=== PATIENT | male | born 1935 | race Caucasian/White ===

== ENCOUNTER 2017-04-30 22:13 | Inpatient (IN) | payer MEDICARE, OTHER, SELFPAY ==
[2017-04-30 22:16] VITALS: BP 116/74; PULSE 138; RESP 31; TEMP 37.9; O2SAT 90; BMI 32.4
--- NOTE | 2017-04-30 22:28 | NURSING ---
NO OLD EKG'S IN MUSE
[2017-04-30] MEDS: 0.9% Normal Saline 1,000 ML 999 ML IV (22:30)
--- NOTE | 2017-04-30 22:31 | RAD_ITS ---
STUDY: X-RAY CHEST REASON FOR EXAM: Male, 81 years old. Fever, vomiting TECHNIQUE: Single AP portable view of the chest. COMPARISON: None. FINDINGS: The lungs are under expanded. Bilateral small effusions right greater than left. Right lower lung opacity. There is no demonstrated pleural abnormality. There is mild cardiac enlargement. Normal mediastinum and jeimy. Normal visualized pulmonary arteries. Normal visualized aortic arch and descending thoracic aorta. Normal visualized thoracic spine. Normal visualized ribs, clavicles, and shoulders. There is no demonstrated abnormality of the visualized soft tissue structures of the upper abdomen. RAD/Chest 1 View (Portable) IMPRESSION: Bilateral small effusions right greater than left. Right lower lung infiltrate not excluded. Electronically Signed: Richmond Emmanuel DO at 23:39 EST , Service support ,
--- NOTE | 2017-04-30 22:31 | EKG12_ITS ---
Test Reason : WEAKNESS Blood Pressure : / mmHG Vent. Rate : 136 BPM Atrial Rate : 136 BPM P-R Int : 132 ms QRS Dur : 082 ms QT Int : 306 ms P-R-T Axes : 038 062 050 degrees QTc Int : 460 ms Sinus tachycardia Otherwise normal ECG Confirmed by CHANELLE VARGAS ([id number]), digital editor KIARA BARON ([id number] on 05/02/2017 11:37:36 AM Referred By: DAYNE Confirmed By:CHANELLE VARGAS
--- NOTE | 2017-04-30 22:35 | CT_ITS ---
STUDY: CT BRAIN WITHOUT CONTRAST REASON FOR EXAM: Male, 81 years old. Mental status change, fever, lethargy RADIATION DOSAGE (If Supplied By Facility): CTDIvol = ( 44.99 ) mGy, DLP = ( 812.98 ) mGycm TECHNIQUE: Transaxial CT imaging of the brain was performed without administration of intravenous contrast material. Sagittal and coronal images are reformatted. Individualized dose optimization techniques were used for this CT. COMPARISON: None. FINDINGS: Normal soft tissue structures. Normal calvarium. There is moderate cerebral atrophy with widening of the extra-axial spaces and ventricular dilatation. There are areas of decreased attenuation within the white matter tracts of the supratentorial brain, consistent with microvascular disease changes. Right and left frontal lobe areas of encephalomalacia Normal basal ganglia and thalami. Normal brainstem. Normal cerebellum. There is no intracranial hemorrhage. There are no findings of an acute ischemic infarction. Normal visualized paranasal sinuses. CT/Brain/Head without Contrast IMPRESSION: Chronic involutional changes of the brain. No acute intracranial process. Electronically Signed: Richmond Emmanuel DO at 23:58 EST , Service support ,
[2017-04-30 22:46] LABS: Bacteria 0 SEEN /hpf (None Seen); Mucous, Urine 0 SEEN /hpf (<or=2+); Squamous Epithelial Cells - UA 0 SEEN /hpf (0-5)
[2017-04-30 22:46] LABS: Absolute Lymphocyte Count 0.48 X10^3/ul (0.83-4.51); Absolute Neutrophil Count 15.7 X10^3/uL (2.0-7.7); Basophil# 0.04 X10^3/uL; Basophil% 0.2 % (0-1); Eosinophil# 0.14 X10^3/uL; Eosinophils% 0.8 % (0-5); Hematocrit 44.2 % (40-54); Hemoglobin 14.3 g/dl (13.0-16.5); International Normalized Ratio 1.1; Lymphocyte # 0.48 X10^3/ul (4.0); Lymphocyte % 2.8 % (19-41); Mean Corp Hgb Conc 32.4 g/gl (32-36); Mean Corpuscular Hgb 29.2 pg (27.0-32.0); Mean Corpuscular Volume 90.2 fL (80-94); Mean Platelet Vol. 9.9 fl (6.2-12.0); Monocyte# 0.86 X10^3/uL; Neutrophil # 15.66 X10^3/uL (2.7-7.7); Platelet Count 398 K/mm3 (150-450); Prothrombin Time (Protime)PT. 13.7 SECONDS (11.7-14.9); RBC Distribution Width CV 15.3 % (11.6-14.6); RBC Distribution Width SD 49.5 fl (35.1-43.9); White Blood Count 17.2 K/mm3 (4.4-11.0)
[2017-04-30 22:47] LABS: Differential Indicated SCAN CRITERIA MET; POSITIVE COUNT NO; POSITIVE DIFFERENTIAL YES; POSITIVE MORPHOLOGY NO; Partial Thromboplast Time 31.4 Seconds (24.1-36.2)
[2017-04-30 22:48] LABS: Color, Urine Yellow (Yellow); Glucose, Dipstick 50 mg/dl (Normal); Ketone-Dipstick Negative (Negative); Leukocyte Esterase-Dipstick Negative /ul (Negative); Nitrite-Dipstick Negative (Negative); Occult Blood-Urine 10 /ul (Negative); Protein-Dipstick Negative (Negative); Urine Bilirubin Dipstick Negative (Negative); Urine Clarity Clear (Clear); Urine Urobilinogen Normal (Normal)
[2017-04-30 22:49] VITALS: TEMP 38.9
[2017-04-30 22:50] VITALS: BP 128/73; PULSE 130; RESP 22; TEMP 39; O2SAT 96
[2017-04-30 22:55] LABS: Hyaline Cast 0-5 SEEN /lpf (0-5)
[2017-04-30 22:56] LABS: Red Blood Cells-Urine 0-5 SEEN /hpf (0-5); White Blood Cells 0-5 SEEN /hpf (0-5)
[2017-04-30 22:58] LABS: Transitional Epithelial - Ur 0-5 SEEN /hpf (0-5)
[2017-04-30 22:59] LABS: ALB/GLOB Ratio 0.6 RATIO (0.9-2.4); AST(SGOT) 14 U/L (15-37); Alanine Aminotransfer ALT/SGPT 13 U/L (12-78); Alkaline Phosphatase 132 U/L (45-117); Anion Gap 8 (5-15); BUN 26 mg/dL (7-18); BUN/Creat Ratio 11.9 RATIO (10-20); Calcium,Total 8.5 mg/dL (8.5-10.1); Chloride 103 mmol/L (98-107); Creatinine, Serum 2.18 mg/dL (0.70-1.30); EST Glomerular Filtration Rate 31 mL/min (>60); Est Glom Filt Rate - Afr Amer 38 mL/min (>60); Estimated Creatinine Clearance 27.91 ml/min; Globulin 4.7 g/dL (2.2-4.2); Glucose 96 mg/dL (70-110); Potassium 4.8 mmol/L (3.5-5.1); Protein, Total 7.7 g/dL (6.4-8.2); Sodium Level 139 mmol/L (136-145)
[2017-04-30 23:00] LABS: Lactic Acid 1.7 mmol/L (0.4-2.0)
[2017-04-30 23:11] LABS: Differential Comment SCANNED
--- NOTE | 2017-04-30 23:13 | ED.VISSUMM ---
- ER Visit Summary Date of Service: 04/30/17 Chief Complaint: Fever, vomiting, aspiration concern History of Present Illness: The patient is a 81 M sent from [place] for evaluation of fever, vomiting, aspiration concerns. Reported temp of 102 at 9 PM status post 1 g Tylenol. Reported emesis ?2 that appeared bloody per report. Reported aspiration concerns. Patient history of traumatic brain injury baseline to self per intermediate. They state he have lower extremity weakness. Records did not know any anticoagulation medications. Patient came the ED 90% on room air. Patient is a full code. Patient unable to give any additional information. Past medical history: Diabetes, hypercholesterolemia, TBI, depression Physical Examination: Vitals: Temp 102.2 orally, pulse 138, respirations 31, blood pressure 120/73 patient is a 50 units of insulin subcu General: Awake, follows some commands, on oxygen. No acute distress HEENT: Normocephalic, atraumatic. 2 mm, equal reactive. Dry mucosa membranes. She has Neck: supple, nontender. Cardiovascular: Regular tachycardic rate and rhythm, no murmurs Respiratory: Rhonchi was noted bilaterally, diminished breath sounds, no accessory muscle use, no retractions, rales normal conjunctiva Abdomen: Soft, nontender, nondistended Extremities: Nontender, 1+ symmetric lower extremity edema, pulses intact ?4 Neuro: Follows some commands, weakness lower extremities and left upper extremity Skin: No pallor is Test Results: EKG: Sinus tachycardia, rate of 36, no ST or T-wave changes. WBC 17, hemoglobin 14.3. Creatinine 2.18. Lactic acid 1.7. Troponin 0 0.03. UA normal. Influenza negative. Blood and urine cultures pending. Chest x-ray: Bilateral pleural effusion, right lower lobe opacity. CT head: No acute changes. Emergency Department Course and Treatment: Patient placed on oxygen. EKG was sinus tachycardia. IV fluids given. Sepsis labs were ordered. Concerns and reported aspiration, Unasyn was started. 1 g of Tylenol was given 2 hours ago. Reported vomiting with concerns of blood. Patient started on Protonix along with a drip. Blood pressure is stable. With rhonchi given DuoNeb treatments. I did speak with nurse taking care of the patient, reported called in the room by nursing tech for emesis ?2. States there was a little blood from the nostril that was bright red, second emesis was more dark in color. Shortly after noted the breathing issues in the temperature. Patient weight-bear pivot transfers for the past 6 months. Discussed with nursing, had outpatient labs with creatinine of 1.81 in July 2016. Patient does meet sepsis criteria. 3 L fluids, heart rate still tachycardic 120s-130s. Additional liter fluid was given. Stable nasal cannula. On reevaluation the room, patient more awake alert, more responsive. I discussed with hospitalist, Dr. Reed, who will admit to PCU for further management. Treatment Plan: [] Disposition: Admission Impression: 1. Sepsis 2. Aspiration pneumonia 3. Emesis 4. Chronic kidney disease This note was generated with [employer] dictation software. It may contain incorrect words, spelling, and punctuation that were not noted in review of the chart prior to signing ED Disposition - Plan for ED Patient: Disposition: Acute [facility] Chief Complaint: General Illness Diagnosis: Sepsis, Aspiration pneumonia, Emesis, Chronic kidney disease Referrals: NOT,DEFINED [Primary Care Provider] -
--- NOTE | 2017-04-30 23:19 | ED.DCSUM_ITS ---
- ER Visit Summary Date of Service: 04/30/17 Chief Complaint: Fever, vomiting, aspiration concern History of Present Illness: The patient is a 81 M sent from [place] for evaluation of fever, vomiting, aspiration concerns. Reported temp of 102 at 9 PM status post 1 g Tylenol. Reported emesis ?2 that appeared bloody per report. Reported aspiration concerns. Patient history of traumatic brain injury baseline to self per alf. They state he have lower extremity weakness. Records did not know any anticoagulation medications. Patient came the ED 90% on room air. Patient is a full code. Patient unable to give any additional information. Past medical history: Diabetes, hypercholesterolemia, TBI, depression Physical Examination: Vitals: Temp 102.2 orally, pulse 138, respirations 31, blood pressure 120/73 patient is a 50 units of insulin subcu General: Awake, follows some commands, on oxygen. No acute distress HEENT: Normocephalic, atraumatic. 2 mm, equal reactive. Dry mucosa membranes. She has Neck: supple, nontender. Cardiovascular: Regular tachycardic rate and rhythm, no murmurs Respiratory: Rhonchi was noted bilaterally, diminished breath sounds, no accessory muscle use, no retractions, rales normal conjunctiva Abdomen: Soft, nontender, nondistended Extremities: Nontender, 1+ symmetric lower extremity edema, pulses intact ?4 Neuro: Follows some commands, weakness lower extremities and left upper extremity Skin: No pallor is Test Results: EKG: Sinus tachycardia, rate of 36, no ST or T-wave changes. WBC 17, hemoglobin 14.3. Creatinine 2.18. Lactic acid 1.7. Troponin 0 0.03. UA normal. Influenza negative. Blood and urine cultures pending. Chest x-ray: Bilateral pleural effusion, right lower lobe opacity. CT head: No acute changes. Emergency Department Course and Treatment: Patient placed on oxygen. EKG was sinus tachycardia. IV fluids given. Sepsis labs were ordered. Concerns and reported aspiration, Unasyn was started. 1 g of Tylenol was given 2 hours ago. Reported vomiting with concerns of blood. Patient started on Protonix along with a drip. Blood pressure is stable. With rhonchi given DuoNeb treatments. I did speak with nurse taking care of the patient, reported called in the room by nursing unit manager for emesis ?2. States there was a little blood from the nostril that was bright red, second emesis was more dark in color. Shortly after noted the breathing issues in the temperature. Patient weight-bear pivot transfers for the past 6 months. Discussed with nursing, had outpatient labs with creatinine of 1.81 in July 2016. Patient does meet sepsis criteria. 3 L fluids, heart rate still tachycardic 120s-130s. Additional liter fluid was given. Stable nasal cannula. On reevaluation the room, patient more awake alert, more responsive. I discussed with hospitalist, Dr. Reed, who will admit to PCU for further management. Treatment Plan: [] Disposition: Admission Impression: 1. Sepsis 2. Aspiration pneumonia 3. Emesis 4. Chronic kidney disease This note was generated with [employer] dictation software. It may contain incorrect words, spelling, and punctuation that were not noted in review of the chart prior to signing ED Disposition - Plan for ED Patient: Disposition: Acute [facility] Chief Complaint: General Illness Diagnosis: Sepsis, Aspiration pneumonia, Emesis, Chronic kidney disease Referrals: NOT,DEFINED [Primary Care Provider] -
[2017-04-30 23:41] VITALS: BP 146/80; PULSE 126; RESP 27; O2SAT 94
[2017-04-30 23:45] VITALS: PULSE 128; RESP 26
[2017-04-30] MEDS: Ipratropium/Albuterol Sulfate 3 ML AMPUL.NEB INHALATION (23:47)
[2017-04-30] MEDS: 0.9% Normal Saline 1,000 ML 150 ML IV (23:56)
[2017-04-30 23:59] VITALS: BP 142/61; PULSE 128; RESP 32; TEMP 38.9; O2SAT 93
[2017-05-01] VITALS (16 sets, daily range): BP systolic 93–137; BP diastolic 46–72; PULSE 104–127; RESP 16–20; TEMP 36.8–37.8; O2SAT 88–95; BMI 33.8; BMI 33.9
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
[2017-05-01] MEDS: 0.9% Normal Saline 1,000 ML 999 ML IV (00:10)
--- NOTE | 2017-05-01 00:21 | HP.PCM_ITS ---
Problem List (1) History of traumatic brain injury Status: Chronic (2) Hyperlipidemia Status: Chronic Qualifiers: Hyperlipidemia type: unspecified Qualified Code(s): E78.5 - Hyperlipidemia , unspecified (3) Obesity (BMI 30.0-34.9) Status: Chronic (4) Anxiety and depression Status: Chronic (5) Diabetes mellitus, type II Status: Chronic Qualifiers: Diabetes mellitus complication status: with unspecified complications Diabetes mellitus alf insulin use: with termite helper use Qualified Code(s) : E11.8 - Type 2 diabetes mellitus with unspecified complications; Z79.4 - alf (current) use of insulin History of Present Illness Date of Admission: 05/01/17 Chief Complaint: Cough, Dyspnea, N/V, Fever The patient is a 81 y/o M w/ PMHx: Anxiety and Depression, Diabetes mellitus type II, Hx TBI ~ 1984 fell off a roof and hit his head (A+O to person only baseline per facility), Hyperlipidemia, Obesity, CKD suspected stage III (2016 Cr 1.8 per facility report) who presents to the [facility] on 05/01/17 from [facility] where he has been a patient since 2011, noted per facility to staff to be limited to standing and pivot for transfer only with history of onset episode of nausea and emesis with following later in the day onset fevers , dyspnea, increased respiratory rate as well as coughing. Facility staff also noted following severe retching the patient did have a small amount of blood tinged appearance to his sputum. In the ED work-up included T 102.2, HR 130, BP 128/73, RR 22-26, 96% on 2L NC, CBC w/ WBC 17.2, Hgb 14.3, Plts 398 with L shift , unremarkable coags, CMP w/ BUN/Cr 26/2.18, trop 0.03, UA unremarkable, EKG w/ sinus tachycardia, chest x-ray with bilateral small effusions right greater than left with the right lower lung possible infiltrate, CT head with no acute findings, chronic changes. In the emergency room patient administered 2 L normal saline, Unasyn, Protonix until clarification with facility as initial concern for possible GI bleed. Past Medical History Past Medical History (Chronic Problems): Chronic Problems History of traumatic brain injury (Chronic) Hyperlipidemia (Chronic) Obesity (BMI 30.0-34.9) (Chronic) Anxiety and depression (Chronic) Diabetes mellitus, type II (Chronic) Allergies No Known Allergies Allergy (Verified 04/30/17 22:25) Home Medications: Ambulatory Orders Medication Instructions Recorded Acetaminophen 500 mg PO BID 04/30/17 Atorvastatin Calcium 20 mg PO QHS 04/30/17 Furosemide 40 mg PO DAILY 04/30/17 Guaifenesin/Dextromethorphan 20 ml PO PRN PRN 04/30/17 [Robafen Dm Cgh-Chest Rizwan Liq] Ibuprofen 400 mg PO Q6H PRN PRN 04/30/17 Insulin Glargine,Hum.rec.anlog 40 units SQ DAILY 04/30/17 [Lantus] Insulin Lispro [Humalog] 18 unit SQ TIDCM 04/30/17 Loperamide [Imodium] 2 mg PO PRN PRN 04/30/17 Loratadine 10 mg PO DAILY 04/30/17 Menthol/Lanolin/Calamine/Znox 1 applic TOPICAL DAILY 04/30/17 [Calmoseptine Ointment] Mupirocin [Bactroban] 1 applic TOPICAL TID 04/30/17 Sertraline HCl [Zoloft] 100 mg PO DAILY 04/30/17 TraMADol [Ultram (G)] 50 mg PO PRN PRN 04/30/17 Surgical History: - - Appendectomy, Back Surgery. Psychiatric History: Anxiety, Depression Lives: Custodial Smoking Status: Former smoker Tobacco Use: Non-smoker Alcohol: None Drugs: None - *Family History Maternal History Items: No pertinent history Paternal History Items: Stroke - CVA in mid-60s. Review of Systems Constitutional: Reports: Chills, Malaise, Weakness. Denies: Fever, Weight Change HEENT: Denies: Head Aches, Sinus Congestion, Sinus Drainage Cardiovascular: Denies: Chest Pain, Palpitations Respiratory: Reports: Cough, Shortness of Breath, Shortness of breath at rest, Shortness of breath upon exertion, Sputum production Gastrointestinal: Reports: Nausea, Vomiting. Denies: Abdominal Pain Genitourinary: Denies: Dysuria Musculoskeletal: Denies: Joint Pain, Joint Tenderness Skin: Denies: Rash, Wounds Neurological: Denies: Numbness, Tingling, Focal weakness Psychiatric: Reports: Anxiety, Depression - ROS given per Facility staff, patient minimal orientation and interactiveness.. Denies: Homicidal Ideations, Suicidal Ideations Hematologic/ Lymphatic: Denies: Easy Bruising, Easy Bleeding VTE Information - Inpt Only VTE Present on Admission: No VTE Mechan Device Prophylaxis: SCD's VTE Pharm Prophylaxis ordered?: Yes Subjective: Seated upright in the ED bed, chills evident, increased RR, some accessory muscle usage. Objective: Physical Examination: General: awake, alert, oriented to self only, able to answer with nod to some questions, able to grasp fingers when requested, intermittently following requests, commands, seated upright in the ED bed, increased RR, some accessory muscle usage. Skin: normal color, turgor, no icterus, cyanosis. HEENT: AT/NC, EOMI, PERRLA, dry MM, no carotid bruits or JVD noted. Lungs: Diminished bases, mildly coarse BL bases, R>L, increased RR, some accessory muscle usage, no wheezing. Heart: Tachycardic with regular rhythm; no gallop, rub audible. Abdomen: soft, obese, NTTP, ND, normal BS, no HSM. Extremities: no cyanosis, clubbing, or edema. Neurological: awake, alert, oriented to self only, able to answer with nod to some questions, able to grasp fingers when requested, intermittently following requests, commands, cognitive function baseline poor, appears intact; pupils equally reactive to light and accomodation; cranial nerves II-XII grossly normal but difficult to assess, minimal movement LE, movement BL UE minimal also which is chronic per facility, near bedbound, severely debilitated, strength severely globally decreased. Psychiatric: affect appears flat, no acute evidence of depressive or anxiety feelings. - Physical Exam Vital Signs Temp Pulse Resp BP Pulse Ox 102.2 F H 128 H 26 H 146/80 H 94 04/30/17 22:50 04/30/17 23:45 04/30/17 23:45 04/30/17 23:41 04/30/17 23:41 Oxygen Flow Rate 2 Oxygen Delivery Method Nasal Cannula Weight: 226 lb 3.108 oz Body Mass Index (BMI) 32.4 Microbiology Past 72 Hours 04/30/17 22:55 Influenza Types A,B Direct FA (SUSAN) - Final Mucosa - Nose Laboratory Tests Past 24 Hrs 01/16/18 01/16/18 01/16/18 22:25 22:25 22:25 WBC 17.2 H RBC 4.90 Hgb 14.3 Hct 44.2 MCV 90.2 MCH 29.2 MCHC 32.4 RDW 15.3 H RDW Differential 49.5 H Plt Count 398 MPV 9.9 Immature Gran % (Auto) 0.200 Neut % (Auto) 91.0 H Lymph % (Auto) 2.8 L Sanborn % (Auto) 5.0 Eos % (Auto) 0.8 Baso % (Auto) 0.2 Absolute Neuts (auto) 15.7 H Absolute Lymphs (auto) 0.48 L Total Counted Not Reportable Differential Comment SCANNED PT 13.7 INR 1.1 APTT 31.4 Sodium 139 Potassium 4.8 Chloride 103 Carbon Dioxide 28.0 Anion Gap 8 BUN 26 H Creatinine 2.18 H Estim Creat Clear Calc 27.91 Est GFR (MDRD) Af Amer 38 L Est GFR (MDRD) Non-Af 31 L BUN/Creatinine Ratio 11.9 Glucose 96 Lactic Acid Calcium 8.5 Total Bilirubin 0.70 AST 14 L ALT 13 Alkaline Phosphatase 132 H Troponin I Total Protein 7.7 Albumin 3.0 L Globulin 4.7 H Albumin/Globulin Ratio 0.6 L Urine Color Urine Clarity Urine pH Ur Specific Waite Urine Protein Urine Glucose (UA) Urine Ketones Urine Occult Blood Urine Nitrite Urine Bilirubin Urine Urobilinogen Ur Leukocyte Esterase Urine RBC Urine WBC Ur Squamous Epith Cells Ur Transition Epith Cell Urine Bacteria Hyaline Casts Urine Mucus 04/30/17 04/30/17 04/30/17 22:25 22:25 22:40 WBC RBC Hgb Hct MCV MCH MCHC RDW RDW Differential Plt Count MPV Immature Gran % (Auto) Neut % (Auto) Lymph % (Auto) Sanborn % (Auto) Eos % (Auto) Baso % (Auto) Absolute Neuts (auto) Absolute Lymphs (auto) Total Counted Differential Comment PT INR APTT Sodium Potassium Chloride Carbon Dioxide Anion Gap BUN Creatinine Estim Creat Clear Calc Est GFR (MDRD) Af Amer Est GFR (MDRD) Non-Af BUN/Creatinine Ratio Glucose Lactic Acid 1.7 Calcium Total Bilirubin AST ALT Alkaline Phosphatase Troponin I 0.03 Total Protein Albumin Globulin Albumin/Globulin Ratio Urine Color Yellow Urine Clarity Clear Urine pH 6.0 Ur Specific Waite 1.010 Urine Protein Negative Urine Glucose (UA) 50 H Urine Ketones Negative Urine Occult Blood 10 H Urine Nitrite Negative Urine Bilirubin Negative Urine Urobilinogen Normal Ur Leukocyte Esterase Negative Urine RBC 0-5 SEEN Urine WBC 0-5 SEEN Ur Squamous Epith Cells 0 SEEN Ur Transition Epith Cell 0-5 SEEN Urine Bacteria 0 SEEN Hyaline Casts 0-5 SEEN Urine Mucus 0 SEEN Assessment/Plan The patient is a 81 y/o M w/ PMHx: Anxiety and Depression, Diabetes mellitus type II, Hx TBI, Hyperlipidemia, Obesity, CKD suspected stage III who presents to the [facility] on 05/01/17 from [facility] where he has been a patient since 2011 , noted per facility to staff to be limited to standing and pivot for transfer only with history of onset episode of nausea and emesis with following later in the day onset fevers, dyspnea, increased respiratory rate as well as coughing. (1) Acute Sepsis secondary to Acute Hypoxic Respiratory Failure secondary to Suspected Aspiration PNA, although cannot rule out HCAP Pneumonia: CXR in the ED w/ ? RLL infiltrates, small BL pleural effusions. Admission CBC w/ 17.2 with L shift, febrile, increased RR, tachycardic in the ED. Will admit to telemetry, maintain on oxygen with wean as tolerated to room air, continue ATC duonebs, PRN albuterol, maintained on IV Zosyn and Vancomycin given unclear history as far as timeline with pending MRSA swab assessment, HOB, IS parameters w/ pending sputum cultures and urine antigens. Bld cx x 2 obtained in the ED. PT, OT, Speech given possible aspiration, Case Management consultations for discharge planning. Maintain NPO until Speech assessment given unclear history, aspiration potential. Rapid influenza negative. (2) Suspected Acute kidney injury on CKD suspected stage III: Secondary to acute illness, #1, dehydration. Admission BUN/Cr 26/2.18, prior baseline creatinine noted to be 1.7-1.8 per facility. Will hydrate, hold nephrotoxic medications and repeat chemistry in AM. If no improvement would plan FeNa and renal US assessment. (3) Diabetes mellitus type II: Hold oral home regimen, continue home long- acting insulin regimen, hold scheduled short-acting insulin while NPO status, accu checks w/ ISS. HgBA1c pending. (4) Hx TBI: Decline over the last 6 months, now currently only able to pivot for transfers, otherwise bed bound status, fall precautions, aspiration precautions, position changes, PT/OT/CM consultations as noted. (5) Obesity: Diet, lifestyle changes per facility encouraged given TBI status to assist in healthy weight reduction. (6) Anxiety and Depression: Continue home SSRI. (7) Hyperlipidemia: Not on agent, defer to outpatient. (8) GI Prophylaxis: Famotidine. (9) DVT Prophylaxis: SCDs, heparin. (10) CODE status: FULL CODE. Discussed CODE status at length with HCPOA Son Linden Conroy, including difference between FULL code, DNR-CCA and DNR-CC status. Following discussions about the differences in these status, requested continued FULL CODE despite patient chronic status. Advanced Care Planning Face to Face Time: 20 minutes. Code Visit Inpatient E&M: 64925 Init Hosp L3 Procedures: 35287 Advncd Care Plan 30 Min
[2017-05-01 01:46] LABS: Magnesium 1.8 mg/dL (1.6-2.6)
[2017-05-01] MEDS: Dextrose 50%-Water 25 GM/50 ML DISP.SYRIN IV (02:33)
[2017-05-01] MEDS: 0.9% NaCl Peripheral Flush Adult/Peds IV (02:35)
[2017-05-01] MEDS: 0.9% Normal Saline 1,000 ML 150 ML IV ×2 (02:35→21:05)
[2017-05-01] MEDS: Menthol/Lanolin/Calamine/Znox 113 GM Tube 1 APPLIC TOPICAL (02:38)
[2017-05-01] MEDS: Mupirocin Ointment 22gm Tube 1 APPLIC TOPICAL ×3 (02:38→21:06)
[2017-05-01 03:05] LABS: Hemoglobin A1c 6.9 % (4.2-6.3)
[2017-05-01 03:06] LABS: Bedside Glucose 115 mg/dL (70-110)
[2017-05-01 03:06] LABS: Bedside Glucose 62 mg/dL (70-110)
[2017-05-01 06:15] LABS: M R Staph aureus DNA By PCR POSITIVE (Negative); Probe Check PASS
[2017-05-01 06:56] LABS: Bedside Glucose 134 mg/dL (70-110)
--- NOTE | 2017-05-01 08:27 | CPS ---
pt placed on 2 lpm. sat to 93%
[2017-05-01] MEDS: Ipratropium/Albuterol Sulfate 3 ML AMPUL.NEB INHALATION ×4 (11:10→22:37)
[2017-05-01 11:56] LABS: Bedside Glucose 128 mg/dL (70-110)
--- NOTE | 2017-05-01 15:43 | CASEMGMT ---
KIMI faxed updates to [facility]. KIMI to follow for d/c planning. Karey GALINDO MSW
--- NOTE | 2017-05-01 15:44 | CPS ---
rx osmar fairly well....pt pulled on mask throughout aerosol
--- NOTE | 2017-05-01 15:52 | PCM.PN.BLA ---
Progress Note Patient is an 81-year-old male with a past medical history of traumatic brain injury, hyperlipidemia, obesity, anxiety/depression and diabetes mellitus type 2 who presented to the emergency department at [facility] on 05/01/2017 from [facility] with complaint of nausea/vomiting on 04/30/2017 followed by fevers, shortness of breath and increased respiratory rate with coughing. Vital signs at presentation to the emergency room were temp 100.3?F, pulse rate 138, blood pressure 116/74, respiratory rate 31 and he was 90% saturated on room air. White blood cell count was increased to 17.2 with 91% neutrophils. Hemoglobin and platelets were within normal limits. PT and PTT were normal. Electrolytes were within normal limits and the BUN was 26 with a creatinine of 2.18. Hemoglobin A1c was 6.9. UA had 0-5 WBCs and was nitrite negative. Lactic acid was 1.7. He does have glucose urea and there was a trace of occult blood. Chest x-ray was a poor study because he was rotated and did not take a deep breath however there appears to be infiltrate on the right side and a pleural effusion as well. CT brain showed no acute processes. He was admitted to the hospital with a diagnosis of severe sepsis secondary to presumed HCAP pneumonia with acute hypoxia. I suspect he may have aspirated. He was started on vancomycin and Zosyn. CODE STATUS was discussed by Dr. Reed with the patient's son Linden Conroy and he is to be a full code.
--- NOTE | 2017-05-01 16:00 | PN_ITS ---
Progress Note Patient is an 81-year-old male with a past medical history of traumatic brain injury, hyperlipidemia, obesity, anxiety/depression and diabetes mellitus type 2 who presented to the emergency department at [facility] on from [facility] with complaint of nausea/vomiting on 2017 followed by fevers, shortness of breath and increased respiratory rate with coughing. Vital signs at presentation to the emergency room were temp 100.3?F, pulse rate 138, blood pressure 116/74, respiratory rate 31 and he was 90% saturated on room air. White blood cell count was increased to 17.2 with 91 % neutrophils. Hemoglobin and platelets were within normal limits. PT and PTT were normal. Electrolytes were within normal limits and the BUN was 26 with a creatinine of 2.18. Hemoglobin A1c was 6.9. UA had 0-5 WBCs and was nitrite negative. Lactic acid was 1.7. He does have glucose urea and there was a trace of occult blood. Chest x-ray was a poor study because he was rotated and did not take a deep breath however there appears to be infiltrate on the right side and a pleural effusion as well. CT brain showed no acute processes. He was admitted to the hospital with a diagnosis of severe sepsis secondary to presumed HCAP pneumonia with acute hypoxia. I suspect he may have aspirated. He was started on vancomycin and Zosyn. CODE STATUS was discussed by Dr. Reed with the patient's son Linden Conroy and he is to be a full code.
[2017-05-01] MEDS: Glucerna Shake 120 ML LIQUID PO ×2 (18:25→21:06)
[2017-05-01 18:26] LABS: Bedside Glucose 161 mg/dL (70-110)
[2017-05-01] MEDS: guaiFENesin 1,200 MG Tablet 1200 MG PO (21:05)
[2017-05-01] MEDS: Famotidine 20 MG Tablet PO (21:05)
[2017-05-01] MEDS: Atorvastatin Calcium 20 MG Tablet PO (21:05)
[2017-05-01 21:21] LABS: Bedside Glucose 210 mg/dL (70-110)
[2017-05-02] VITALS (13 sets, daily range): BP systolic 128–150; BP diastolic 64–73; PULSE 76–114; RESP 18–24; TEMP 36.8–37.1; O2SAT 94–95
[2017-05-02] MEDS: Mupirocin Ointment 22gm Tube 1 APPLIC TOPICAL ×2 (05:18→13:41)
[2017-05-02 06:51] LABS: Bedside Glucose 167 mg/dL (70-110)
[2017-05-02] MEDS: Ipratropium/Albuterol Sulfate 3 ML AMPUL.NEB INHALATION ×3 (07:16→19:16)
[2017-05-02] MEDS: Glucerna Shake 120 ML LIQUID PO ×3 (09:36→21:52)
[2017-05-02] MEDS: Polyethylene Glycol 3350 17 GM PACKET PO (09:38)
[2017-05-02] MEDS: Sertraline 100 MG Tablet PO (09:40)
[2017-05-02] MEDS: guaiFENesin 1,200 MG Tablet 1200 MG PO ×2 (09:40→21:52)
[2017-05-02] MEDS: Famotidine 20 MG Tablet PO ×2 (09:40→21:52)
[2017-05-02 11:26] LABS: Bedside Glucose 281 mg/dL (70-110)
--- NOTE | 2017-05-02 11:41 | PCM.PROGNOTE ---
Subjective: Patient seen and examined. Resting in bed in no acute distress. Patient is alert and cooperative. Denies fever, chills. Denies N/V. Denies shortness of breath, chest pain. Denies other complaints. - Physical Exam General: Alert, Cooperative HEENT: Atraumatic, PERRLA, EOMI, Normocephalic Neck: Supple, No JVD, Negative Carotid Bruits Lungs: Diminished, - - crackles BL bases Cardiovascular: Normal S1, Normal S2, No murmurs, Tachycardic Abdomen: Bowel Sounds Present, Soft, Non Tender, Non-Distended Extremities: No clubbing, No cyanosis, No edema, Capillary Refill Less than 3 Seconds Skin: No rashes, No breakdown Musculoskeletal: No Tenderness to Palpation of Joints or Extremities Neurological: Cranial nerves II-XII grossly intact, Neuro grossly intact Psych/Mental Status: Normal Affect, Appropriate Vital Signs Temp Pulse Resp BP Pulse Ox 98.5 F 114 H 24 H 143/73 H 94 05/02/17 10:08 05/02/17 11:24 05/02/17 10:59 05/02/17 10:08 05/02/17 10:08 Oxygen Flow Rate 2 Oxygen Delivery Method Room Air Weight: 101 kg Body Mass Index (BMI) 33.8 Intake and Output for Last 24 Hours 04/30/17 05/01/17 05/02/17 23:59 23:59 23:59 Intake Total 2224 / 2224 485 / 485 Output Total 850 / 850 225 / 225 Balance 1374 / 1374 260 / 260 Microbiology Past 72 Hours 05/01/17 07:20 Respiratory Panel (PCR) - Final Mucosa - Nose POC Glucose 05/02/17 05/02/17 05/01/17 11:21 06:47 21:01 POC Glucose 281 H 167 H 210 H 05/01/17 05/01/17 18:08 11:44 POC Glucose 161 H 128 H Assessment/Plan Patient is a 81-year-old male admitted 05/01/2017 due to cough, dyspnea, nausea vomiting, fever. Patient currently resides in [facility]. He has a past medical history of anxiety, depression, diabetes mellitus type 2, history of TBI secondary to traumatic injury, obesity, suspected chronic kidney disease stage III, hyperlipidemia. 1. Acute sepsis secondary to suspected aspiration pneumonia versus HCAP-chest x-ray on admission showed bilateral small effusions right greater than left. Speech therapy consulted and recommending pur?ed textures, thin liquids with supervised meals. Continue IV Zosyn and vancomycin. MRSA PCR positive. Fever improving. Remains mildly tachycardic. Oxygen stable on room air. Continue albuterol DuoNeb aerosols. Negative for influenza. Urine for strep and Legionella negative. Blood cultures pending. 2. Acute hypoxia secondary to #1-resolved. Patient currently stable on room air. Oxygen supplementation as needed to maintain O2 at or above 90%. 3. Suspected acute kidney injury on suspected chronic kidney disease stage III-suspect acutely secondary to nausea and vomiting prior to admission which has resolved.Continue IV fluids. Monitor BMP. 4. Type 2 diabetes [id number] before meals at bedtime with sliding scale insulin and home long-acting regimen. Hemoglobin A1c 6.9%. 5. Hyperlipidemia-continue statin. 6. Anxiety/depression-continue home regimen. 7. History of TBI/physical debility-patient has had recent decline over the past 6 months. [facility]. Alert to self only which is patient's baseline. PT/OT/ST. 8. Obesity-encouraged lifestyle and dietary modifications. DVT prophylaxis-heparin SC. This patient was seen by TITA Bear under the supervision of Dr. Lewis.
--- NOTE | 2017-05-02 11:58 | PN_ITS ---
Subjective: Patient seen and examined. Resting in bed in no acute distress. Patient is alert and cooperative. Denies fever, chills. Denies N/V. Denies shortness of breath, chest pain. Denies other complaints. - Physical Exam General: Alert, Cooperative HEENT: Atraumatic, PERRLA, EOMI, Normocephalic Neck: Supple, No JVD, Negative Carotid Bruits Lungs: Diminished, - - crackles BL bases Cardiovascular: Normal S1, Normal S2, No murmurs, Tachycardic Abdomen: Bowel Sounds Present, Soft, Non Tender, Non-Distended Extremities: No clubbing, No cyanosis, No edema, Capillary Refill Less than 3 Seconds Skin: No rashes, No breakdown Musculoskeletal: No Tenderness to Palpation of Joints or Extremities Neurological: Cranial nerves II-XII grossly intact, Neuro grossly intact Psych/Mental Status: Normal Affect, Appropriate Vital Signs Temp Pulse Resp BP Pulse Ox 98.5 F 114 H 24 H 143/73 H 94 05/02/17 10:08 05/02/17 11:24 05/02/17 10:59 05/02/17 10:08 05/02/17 10:08 Oxygen Flow Rate 2 Oxygen Delivery Method Room Air Weight: 101 kg Body Mass Index (BMI) 33.8 Intake and Output for Last 24 Hours 04/30/17 05/01/17 05/02/17 23:59 23:59 23:59 Intake Total 2224 / 2224 485 / 485 Output Total 850 / 850 225 / 225 Balance 1374 / 1374 260 / 260 Microbiology Past 72 Hours 05/01/17 07:20 Respiratory Panel (PCR) - Final Mucosa - Nose POC Glucose 05/02/17 05/02/17 05/01/17 11:21 06:47 21:01 POC Glucose 281 H 167 H 210 H 05/01/17 05/01/17 18:08 11:44 POC Glucose 161 H 128 H Assessment/Plan Patient is a 81-year-old male admitted 05/01/2017 due to cough, dyspnea, nausea vomiting, fever. Patient currently resides in [facility]. He has a past medical history of anxiety, depression, diabetes mellitus type 2, history of TBI secondary to traumatic injury, obesity, suspected chronic kidney disease stage III, hyperlipidemia. 1. Acute sepsis secondary to suspected aspiration pneumonia versus HCAP-chest x -ray on admission showed bilateral small effusions right greater than left. Speech therapy consulted and recommending pur?ed textures, thin liquids with supervised meals. Continue IV Zosyn and vancomycin. MRSA PCR positive. Fever improving. Remains mildly tachycardic. Oxygen stable on room air. Continue albuterol DuoNeb aerosols. Negative for influenza. Urine for strep and Legionella negative. Blood cultures pending. 2. Acute hypoxia secondary to #1-resolved. Patient currently stable on room air. Oxygen supplementation as needed to maintain O2 at or above 90%. 3. Suspected acute kidney injury on suspected chronic kidney disease stage III- suspect acutely secondary to nausea and vomiting prior to admission which has resolved.Continue IV fluids. Monitor BMP. 4. Type 2 diabetes [id number]-[id number] before meals at bedtime with sliding scale insulin and home long-acting regimen. Hemoglobin A1c 6.9%. 5. Hyperlipidemia-continue statin. 6. Anxiety/depression-continue home regimen. 7. History of TBI/physical debility-patient has had recent decline over the past 6 months. Currently resides at custodial facility. Alert to self only which is patient's baseline. PT/OT/ST. 8. Obesity-encouraged lifestyle and dietary modifications. DVT prophylaxis-heparin SC. This patient was seen by TITA Bear under the supervision of Dr. Lewis.
[2017-05-02 12:42] LABS: Hematocrit 32.9 % (40-54); Hemoglobin 10.4 g/dl (13.0-16.5); Mean Corp Hgb Conc 31.6 g/gl (32-36); Mean Corpuscular Hgb 29.1 pg (27.0-32.0); Mean Corpuscular Volume 91.9 fL (80-94); Mean Platelet Vol. 10.3 fl (6.2-12.0); Platelet Count 240 K/mm3 (150-450); RBC Distribution Width CV 15.9 % (11.6-14.6); RBC Distribution Width SD 51.4 fl (35.1-43.9); Red Blood Count 3.58 M/mm3 (4.6-6.2); White Blood Count 9.2 K/mm3 (4.4-11.0)
[2017-05-02 12:44] LABS: Scan Indicated on CBC? Y/N NO
[2017-05-02 13:17] LABS: Anion Gap 8 (5-15); BUN 28 mg/dL (7-18); BUN/Creat Ratio 13.1 RATIO (10-20); Calcium,Total 7.7 mg/dL (8.5-10.1); Chloride 108 mmol/L (98-107); Creatinine, Serum 2.14 mg/dL (0.70-1.30); EST Glomerular Filtration Rate 32 mL/min (>60); Est Glom Filt Rate - Afr Amer 38 mL/min (>60); Estimated Creatinine Clearance 26.64 ml/min; Glucose 228 mg/dL (70-110); Potassium 4.6 mmol/L (3.5-5.1); Sodium Level 139 mmol/L (136-145)
[2017-05-02 16:51] LABS: Bedside Glucose 106 mg/dL (70-110)
[2017-05-02] MEDS: 0.9% Normal Saline 1,000 ML 60 ML IV (21:52)
[2017-05-02] MEDS: Atorvastatin Calcium 20 MG Tablet PO (21:52)
[2017-05-02 22:01] LABS: Bedside Glucose 140 mg/dL (70-110)
[2017-05-02] MEDS: Menthol/Lanolin/Calamine/Znox 113 GM Tube 1 APPLIC TOPICAL (22:04)
[2017-05-03] VITALS (13 sets, daily range): BP systolic 148–154; BP diastolic 71–103; PULSE 82–117; RESP 18–24; TEMP 36.2–36.6; O2SAT 91–94
[2017-05-03] MEDS: Ipratropium/Albuterol Sulfate 3 ML AMPUL.NEB INHALATION ×4 (01:56→14:58)
[2017-05-03 05:38] LABS: Hematocrit 32.3 % (40-54); Hemoglobin 10.3 g/dl (13.0-16.5); Mean Corp Hgb Conc 31.9 g/gl (32-36); Mean Corpuscular Hgb 28.9 pg (27.0-32.0); Mean Corpuscular Volume 90.7 fL (80-94); Mean Platelet Vol. 9.9 fl (6.2-12.0); Platelet Count 228 K/mm3 (150-450); RBC Distribution Width CV 15.5 % (11.6-14.6); RBC Distribution Width SD 50.6 fl (35.1-43.9); Red Blood Count 3.56 M/mm3 (4.6-6.2); White Blood Count 8.5 K/mm3 (4.4-11.0)
[2017-05-03 05:39] LABS: Scan Indicated on CBC? Y/N NO
[2017-05-03 05:54] LABS: Anion Gap 7 (5-15); BUN 23 mg/dL (7-18); BUN/Creat Ratio 13.9 RATIO (10-20); Calcium,Total 7.8 mg/dL (8.5-10.1); Chloride 108 mmol/L (98-107); Creatinine, Serum 1.66 mg/dL (0.70-1.30); EST Glomerular Filtration Rate 43 mL/min (>60); Est Glom Filt Rate - Afr Amer 51 mL/min (>60); Estimated Creatinine Clearance 34.34 ml/min; Glucose 55 mg/dL (70-110); Potassium 3.9 mmol/L (3.5-5.1); Sodium Level 139 mmol/L (136-145)
[2017-05-03] MEDS: 0.9% NaCl Peripheral Flush Adult/Peds IV (06:10)
[2017-05-03 08:01] LABS: Bedside Glucose 51 mg/dL (70-110)
[2017-05-03 08:01] LABS: Bedside Glucose 78 mg/dL (70-110)
[2017-05-03 09:31] LABS: Bedside Glucose 45 mg/dL (70-110)
[2017-05-03 09:31] LABS: Bedside Glucose 45 mg/dL (70-110)
[2017-05-03] MEDS: Glucerna Shake 120 ML LIQUID PO (10:05)
[2017-05-03] MEDS: Famotidine 20 MG Tablet PO (10:05)
[2017-05-03] MEDS: guaiFENesin 1,200 MG Tablet 1200 MG PO (10:05)
[2017-05-03] MEDS: Sertraline 100 MG Tablet PO (10:05)
[2017-05-03] MEDS: Menthol/Lanolin/Calamine/Znox 113 GM Tube 1 APPLIC TOPICAL (10:09)
[2017-05-03 10:31] LABS: Bedside Glucose 159 mg/dL (70-110)
[2017-05-03 11:51] LABS: Bedside Glucose 222 mg/dL (70-110)
--- NOTE | 2017-05-03 13:25 | CASEMGMT ---
KIMI called [facility] and let them know patient will be returning today. KIMI to follow for d/c back to [facility]. Karey GALINDO MSW
--- NOTE | 2017-05-03 14:03 | PCM.EXTCARCO ---
- Diet 05/01/17 13:54 Diet: Regular Diet Food consistency:: Puree Liquid Consistency:: Regular/Thin Dietary Modifications:: Pureed Diet Is pt able to select menu?: No Diet Comments: No Straws, supervised meals - Routine Orders/Code Status Enema Type: Fleetz Enema Frequency: Daily PRN Suppository Type: Dulcolax 10mg Suppository Frequency: Daily PRN O2 Liters per Minute: 2 O2 Frequency: PRN Keep PO Greater than or Equal to (%): 90 Routine Lab Work: CBC, BMP, - - Weekly Code Status: Full Code - Wound(s) buttocks Wound Type: healed sheared areas Left upper chest Wound Type: psorasis patch? LFA Wound Type: INFILTRATED IV - Therapies Physical Therapy: Eval and Treat Occupational Therapy: Eval and Treat Speech Therapy: Eval and Treat - Allergies/Procedures Done in Hospital Allergies/Adverse Reactions: Allergies No Known Allergies Allergy (Verified 04/30/17 22:25) Procedures: None - Type of Care/Length of Stay Estimated LOS: More Than 30 Days Type of Care Needed: Skilled Rehab Potential: Fair Prognosis: Fair - Additional Orders/Day of Discharge H&P will serve as current which was dated: 05/01/17 Day of Discharge: 05/03/17 - Dietary and Speech Recommendations Dietitian Recommendations/Changes: Recommend advanced diet to CHO controlled diet consistency per PROJECT MANAGER/DESIGN MANAGER. - Follow Up Care Primary Care Physician: NOT,DEFINED [NON-STAFF] - Please follow up with your Primary Care Physician in: 1-2 Weeks
--- NOTE | 2017-05-03 14:05 | PCM.DC.SUM ---
Discharge Date and Diagnosis Date of Admission: 05/01/17 Date of Discharge: 05/03/17 - Primary Discharge Diagnosis 1. Acute sepsis secondary to suspected aspiration pneumonia 2. Acute hypoxia secondary to #1 - Secondary Discharge Diagnosis Chronic Problems History of traumatic brain injury (Chronic) Hyperlipidemia (Chronic) Obesity (BMI 30.0-34.9) (Chronic) Anxiety and depression (Chronic) Diabetes mellitus, type II (Chronic) Hospital Course and Treatment Imaging Results: Diagnostic Data Chest X-Ray 04/30/17 22:31 IMPRESSION: Bilateral small effusions right greater than left. Right lower lung infiltrate not excluded. Electronically Signed: Richmond Emmanuel DO at 23:39 EST , Service support , Brain CT 04/30/17 22:35 IMPRESSION: Chronic involutional changes of the brain. No acute intracranial process. Electronically Signed: Richmond Emmanuel DO at 23:58 EST , Service support , Consultations 05/01/17 01:43 Consult: Onc/Wound/annealing operator Routine Comment: Wounds to buttocks and left chest Operations: None Procedures: None Summary of Care Provided: Patient is a 81-year-old male admitted 05/01/2017 due to cough, dyspnea, nausea vomiting, fever. Patient currently resides in [facility]. He has a past medical history of anxiety, depression, diabetes mellitus type 2, history of TBI secondary to traumatic injury, obesity, suspected chronic kidney disease stage III, hyperlipidemia. 1. Acute sepsis secondary to suspected aspiration pneumonia-chest x-ray on admission showed bilateral small effusions right greater than left. Speech therapy consulted and recommending pur?ed textures, thin liquids with supervised meals. Patient received IV Zosyn and vancomycin. MRSA PCR positive which is suspected secondary to colonization. Patient has remained afebrile for over 24 hours. Tachycardia resolved. Oxygen stable on room air. Patient can continue albuterol aerosols as needed at [facility]. Influenza and respiratory panel negative. Urine for strep and Legionella negative. Blood cultures show no growth in 48 hours. Patient will continue speech therapy evaluation at [facility]. Continue with diet modifications per speech therapy. Patient will continue oral Augmentin 875 p.o. twice daily for 5 more days of antibiotic therapy at discharge. 2. Acute hypoxia secondary to #1-resolved. Patient currently stable on room air. Oxygen supplementation as needed to maintain O2 at or above 90%. 3. Chronic kidney disease stage III-creatinine elevated on admission compared to patient's baseline. However he was not noted to have acute kidney injury. Creatinine improved with IV fluids. Suspect increased creatinine secondary to dehydration as a result of nausea and vomiting prior to admission. Monitor BMP weekly at long term facility. 4. Type 2 diabetes fxhuijmn-Fqmv-Gdmlwdmysv A1c 6.9%. Continue home insulin regimen. 5. Hyperlipidemia-continue statin. 6. Anxiety/depression-continue home regimen. 7. History of TBI/physical debility-patient has had recent decline over the past 6 months. Currently resides at long term facility. Alert to self only which is patient's baseline. PT/OT/ST. 8. Obesity-encouraged lifestyle and dietary modifications. General: Alert, Cooperative HEENT: Atraumatic, PERRLA, EOMI, Normocephalic Neck: Supple, No JVD, Negative Carotid Bruits Lungs: Diminished, mild wheezing. Cardiovascular: Normal S1, Normal S2, No murmurs, regular rate Abdomen: Bowel Sounds Present, Soft, Non Tender, Non-Distended Extremities: No clubbing, No cyanosis, No edema, Capillary Refill Less than 3 Seconds Skin: No rashes, No breakdown Musculoskeletal: No Tenderness to Palpation of Joints or Extremities Neurological: Cranial nerves II-XII grossly intact, Neuro grossly intact Psych/Mental Status: Normal Affect, Appropriate Patient seen and examined prior to discharge. Physical assessment as noted above. Patient is stable for discharge to long term facility. This patient was seen by TITA Bear under the supervision of Dr. Lewis. Home Medications: Medications to take at Discharge Acetaminophen 500 mg PO BID 04/30/17 Atorvastatin Calcium 20 mg PO QHS 04/30/17 Furosemide 40 mg PO DAILY 04/30/17 Guaifenesin/Dextromethorphan [Robafen Dm Cgh-Chest Rizwan Syrp] 20 ml PO PRN PRN 04/30/17 Ibuprofen 400 mg PO Q6H PRN PRN 04/30/17 Insulin Glargine,Hum.rec.anlog [Lantus] 40 units SQ DAILY 04/30/17 Insulin Lispro [Humalog] 18 unit SQ TIDCM 04/30/17 Loperamide [Imodium] 2 mg PO PRN PRN 04/30/17 Loratadine 10 mg PO DAILY 04/30/17 Menthol/Lanolin/Calamine/Znox [Calmoseptine Ointment] 1 applic TOPICAL DAILY 04/30/17 Mupirocin [Bactroban] 1 applic TOPICAL TID 04/30/17 Sertraline HCl [Zoloft] 100 mg PO DAILY 04/30/17 TraMADol [Ultram] 50 mg PO PRN PRN 04/30/17 Albuterol Aerosols [Ventolin Aerosols] 2.5 mg INHALATION Q2H PRN PRN vial.neb. 05/03/17 Amox/Clavulanate Tablet [Augmentin Tablet] 875 mg PO Q12H #10 tablet 05/03/17 Following Prescrptions Were Given to Patient: Amox/Clavulanate Tablet [Augmentin Tablet] 875 mg PO Q12H #10 tablet Primary Care Physician: NOT,DEFINED [NON-STAFF] - Please follow up with your Primary Care Physician in: 1-2 Weeks Disposition: Senior Care facility Minutes spent on discharge:: 35 Patient Condition:: Stable Meaningful Use Info Meaningful Use Diagnoses (Choose all that apply): None applicable
--- NOTE | 2017-05-03 14:16 | DS.PCM_ITS ---
Discharge Date and Diagnosis Date of Admission: 05/01/17 Date of Discharge: 05/03/17 - Primary Discharge Diagnosis 1. Acute sepsis secondary to suspected aspiration pneumonia 2. Acute hypoxia secondary to #1 - Secondary Discharge Diagnosis Chronic Problems History of traumatic brain injury (Chronic) Hyperlipidemia (Chronic) Obesity (BMI 30.0-34.9) (Chronic) Anxiety and depression (Chronic) Diabetes mellitus, type II (Chronic) Hospital Course and Treatment Imaging Results: Diagnostic Data Chest X-Ray 04/30/17 22:31 IMPRESSION: Bilateral small effusions right greater than left. Right lower lung infiltrate not excluded. Electronically Signed: Richmond Emmanuel DO at 23:39 EST , Service support , Brain CT 04/30/17 22:35 IMPRESSION: Chronic involutional changes of the brain. No acute intracranial process. Electronically Signed: Richmond Emmanuel DO at 23:58 EST , Service support , Consultations 05/01/17 01:43 Consult: Onc/Wound/electrician locomotive Routine Comment: Wounds to buttocks and left chest Operations: None Procedures: None Summary of Care Provided: Patient is a 81-year-old male admitted 05/01/2017 due to cough, dyspnea, nausea vomiting, fever. Patient currently resides in [facility]. He has a past medical history of anxiety, depression, diabetes mellitus type 2, history of TBI secondary to traumatic injury, obesity, suspected chronic kidney disease stage III, hyperlipidemia. 1. Acute sepsis secondary to suspected aspiration pneumonia-chest x-ray on admission showed bilateral small effusions right greater than left. Speech therapy consulted and recommending pur?ed textures, thin liquids with supervised meals. Patient received IV Zosyn and vancomycin. MRSA PCR positive which is suspected secondary to colonization. Patient has remained afebrile for over 24 hours. Tachycardia resolved. Oxygen stable on room air. Patient can continue albuterol aerosols as needed at [facility]. Influenza and respiratory panel negative. Urine for strep and Legionella negative. Blood cultures show no growth in 48 hours. Patient will continue speech therapy evaluation at [facility]. Continue with diet modifications per speech therapy. Patient will continue oral Augmentin 875 p.o. twice daily for 5 more days of antibiotic therapy at discharge. 2. Acute hypoxia secondary to #1-resolved. Patient currently stable on room air. Oxygen supplementation as needed to maintain O2 at or above 90%. 3. Chronic kidney disease stage III-creatinine elevated on admission compared to patient's baseline. However he was not noted to have acute kidney injury. Creatinine improved with IV fluids. Suspect increased creatinine secondary to dehydration as a result of nausea and vomiting prior to admission. [facility]. 4. Type 2 diabetes pyxenwwd-Ofrs-Vaccrwqlmf A1c 6.9%. Continue home insulin regimen. 5. Hyperlipidemia-continue statin. 6. Anxiety/depression-continue home regimen. 7. History of TBI/physical debility-patient has had recent decline over the past 6 months. [facility]. Alert to self only which is patient's baseline. PT/OT/ST. 8. Obesity-encouraged lifestyle and dietary modifications. General: Alert, Cooperative HEENT: Atraumatic, PERRLA, EOMI, Normocephalic Neck: Supple, No JVD, Negative Carotid Bruits Lungs: Diminished, mild wheezing. Cardiovascular: Normal S1, Normal S2, No murmurs, regular rate Abdomen: Bowel Sounds Present, Soft, Non Tender, Non-Distended Extremities: No clubbing, No cyanosis, No edema, Capillary Refill Less than 3 Seconds Skin: No rashes, No breakdown Musculoskeletal: No Tenderness to Palpation of Joints or Extremities Neurological: Cranial nerves II-XII grossly intact, Neuro grossly intact Psych/Mental Status: Normal Affect, Appropriate Patient seen and examined prior to discharge. Physical assessment as noted above. Patient is [facility]. This patient was seen by TITA Bear under the supervision of Dr. Lewis. Home Medications: Medications to take at Discharge Acetaminophen 500 mg PO BID 04/30/17 Atorvastatin Calcium 20 mg PO QHS 04/30/17 Furosemide 40 mg PO DAILY 04/30/17 Guaifenesin/Dextromethorphan [Robafen Dm Cgh-Chest Rizwan Syrp] 20 ml PO PRN PRN 04/30/17 Ibuprofen 400 mg PO Q6H PRN PRN 04/30/17 Insulin Glargine,Hum.rec.anlog [Lantus] 40 units SQ DAILY 04/30/17 Insulin Lispro [Humalog] 18 unit SQ TIDCM 04/30/17 Loperamide [Imodium] 2 mg PO PRN PRN 04/30/17 Loratadine 10 mg PO DAILY 04/30/17 Menthol/Lanolin/Calamine/Znox [Calmoseptine Ointment] 1 applic TOPICAL DAILY Mupirocin [Bactroban] 1 applic TOPICAL TID 04/30/17 Sertraline HCl [Zoloft] 100 mg PO DAILY 04/30/17 TraMADol [Ultram] 50 mg PO PRN PRN 04/30/17 Albuterol Aerosols [Ventolin Aerosols] 2.5 mg INHALATION Q2H PRN PRN vial.neb. 05/03/17 Amox/Clavulanate Tablet [Augmentin Tablet] 875 mg PO Q12H #10 tablet 05/03/17 Following Prescrptions Were Given to Patient: Amox/Clavulanate Tablet [Augmentin Tablet] 875 mg PO Q12H #10 tablet Primary Care Physician: NOT,DEFINED [NON-STAFF] - Please follow up with your Primary Care Physician in: 1-2 Weeks Disposition: Group Home facility Minutes spent on discharge:: 35 Patient Condition:: Stable Meaningful Use Info Meaningful Use Diagnoses (Choose all that apply): None applicable
--- NOTE | 2017-05-03 14:21 | PCM.DC ---
- Discharge Diagnoses Current Active Problems: Current Active and Chronic Problems History of traumatic brain injury (Chronic) Hyperlipidemia (Chronic) Obesity (BMI 30.0-34.9) (Chronic) Anxiety and depression (Chronic) Diabetes mellitus, type II (Chronic) You will use the following diet at home:: Regular, Other - No straws, supervised meals Your food should be the consistency of: Puree Your liquids should be the consistency of: Regular/Thin Discharge Activity: Return to Normal Activity Call your doctor if you observe: Fever of 101 or Higher, Shortness of breath, Dizziness, Fainting spells, Chest pain, Increased palpitations (irregular heartbeat) Allergies/Adverse Reactions: Allergies No Known Allergies Allergy (Verified 04/30/17 22:25) Medications to take at Discharge Acetaminophen 500 mg PO BID 04/30/17 Atorvastatin Calcium 20 mg PO QHS 04/30/17 Furosemide 40 mg PO DAILY 04/30/17 Guaifenesin/Dextromethorphan [Robafen Dm Cgh-Chest Rizwan Syrp] 20 ml PO PRN PRN 04/30/17 Ibuprofen 400 mg PO Q6H PRN PRN 04/30/17 Insulin Glargine,Hum.rec.anlog [Lantus] 40 units SQ DAILY 04/30/17 Insulin Lispro [Humalog] 18 unit SQ TIDCM 04/30/17 Loperamide [Imodium] 2 mg PO PRN PRN 04/30/17 Loratadine 10 mg PO DAILY 04/30/17 Menthol/Lanolin/Calamine/Znox [Calmoseptine Ointment] 1 applic TOPICAL DAILY 04/30/17 Mupirocin [Bactroban] 1 applic TOPICAL TID 04/30/17 Sertraline HCl [Zoloft] 100 mg PO DAILY 04/30/17 TraMADol [Ultram] 50 mg PO PRN PRN 04/30/17 Albuterol Aerosols [Ventolin Aerosols] 2.5 mg INHALATION Q2H PRN PRN vial.neb. 05/03/17 Amox/Clavulanate Tablet [Augmentin Tablet] 875 mg PO Q12H #10 tablet 05/03/17 The following prescriptions were given: Amox/Clavulanate Tablet [Augmentin Tablet] 875 mg PO Q12H #10 tablet Primary Care Physician: NOT,DEFINED [NON-STAFF] - Please follow up with your Primary Care Physician in: 1-2 Weeks Proposed Discharge Date: 05/03/17
--- NOTE | 2017-05-03 14:45 | CASEMGMT ---
KIMI called patient's son Linden and let him know patient will be returning to [facility] today. He thanked for letting him know and he did not need a call back when a time was set up. KIMI called [facility] and arranged for patient to get picked up at 430 via cot. KIMI called [facility] and let Tere know this information. KIMI also notified RN and area secretary. KIMI also faxed d/c instructions to [facility]. All in agreement with d/c plan. Plan: d/c back to [facility]. [facility] transported patient via cot. Karey GALINDO MSW
[2017-05-03 16:17] LABS: Bedside Glucose 182 mg/dL (70-110)
== END 2017-05-03 16:41 | disposition skilled nursing facility (03) | DRG 871 ==
LOC: ED 05-01 00:19 → PCU 05-01 00:32
PROVIDERS: Nurse Practitioner Family; Admitting Provider Family Medicine; Emergency Provider Emergency Medicine; Visit Provider Internal Medicine
DX: A41.9 Sepsis, unspecified organism (principal); J69.0 Pneumonitis due to inhalation of food and vomit; J96.01 Acute respiratory failure with hypoxia; E11.22 Type 2 diabetes mellitus with diabetic chronic kidney disease; N18.3 Chronic kidney disease, stage 3 (moderate); R65.20 Severe sepsis without septic shock; F32.9 Major depressive disorder, single episode, unspecified; F41.9 Anxiety disorder, unspecified; E66.9 Obesity, unspecified; Z68.33 Body mass index [BMI] 33.0-33.9, adult; Z87.820 Personal history of traumatic brain injury; E78.5 Hyperlipidemia, unspecified; Z79.4 Long term (current) use of insulin; Z87.891 Personal history of nicotine dependence
CPT/HCPCS: 36415; 51702; 70450; 71045; 80048; 80053; 81001; 82962; 83036; 83605; 83735; 84484; 85025; 85027; 85610; 85730; 87040; 87086; 87449; 87633; 87641; 87804; 93005; 94640; 94667; 97166; 97802; 99285; J7030; J7040; A4216; J0295; J3490

== ENCOUNTER → 2017-07-16 05:00 | Outpatient (REF) | payer MEDICARE, OTHER, SELFPAY ==
[2017-07-16 07:46] LABS: Hemoglobin 10.9 g/dl (13.0-16.5); Mean Corp Hgb Conc 31.1 g/gl (32-36); Mean Corpuscular Hgb 27.2 pg (27.0-32.0); Mean Corpuscular Volume 87.3 fL (80-94); Mean Platelet Vol. 9.7 fl (6.2-12.0); Platelet Count 303 K/mm3 (150-450); RBC Distribution Width SD 51.2 fl (35.1-43.9); Red Blood Count 4.01 M/mm3 (4.6-6.2); White Blood Count 10.2 K/mm3 (4.4-11.0)
[2017-07-16 07:48] LABS: Scan Indicated on CBC? Y/N NO
[2017-07-16 07:54] LABS: Anion Gap 7 (5-15); BUN 19 mg/dL (7-18); BUN/Creat Ratio 13.8 RATIO (10-20); Calcium,Total 8.1 mg/dL (8.5-10.1); Chloride 103 mmol/L (98-107); Creatinine, Serum 1.38 mg/dL (0.70-1.30); EST Glomerular Filtration Rate 53 mL/min (>60); Est Glom Filt Rate - Afr Amer 64 mL/min (>60); Glucose 117 mg/dL (74-106); Potassium 4.2 mmol/L (3.5-5.1); Sodium Level 136 mmol/L (136-145)
[2017-07-16 09:30] LABS: Hemoglobin A1c 6.7 % (4.2-6.3)
== END ==
PROVIDERS: Visit Provider Family Medicine
DX: I10 Essential (primary) hypertension (principal); Z79.899 Other long term (current) drug therapy; E11.9 Type 2 diabetes mellitus without complications
CPT/HCPCS: 36415; 80048; 83036; 85027

== ENCOUNTER 2017-11-12 11:56 | Inpatient (IN) | payer MEDICARE, OTHER, SELFPAY ==
[2017-11-12] VITALS (10 sets, daily range): BP systolic 99–172; BP diastolic 59–86; PULSE 70–98; RESP 16–18; TEMP 36–37.2; O2SAT 95–98; BMI 32.1; BMI 31.5
--- NOTE | 2017-11-12 12:18 | CT_ITS ---
STUDY: CT BRAIN WITHOUT CONTRAST REASON FOR EXAM: Male, 82 years old. Confusion and altered level of consciousness. RADIATION DOSAGE (If Supplied By Facility): CTDIvol = ( 60.81 ) mGy, DLP = ( 1112.69 ) mGycm TECHNIQUE: Transaxial CT imaging of the brain was performed without administration of intravenous contrast material. Individualized dose optimization techniques were used for this CT. COMPARISON: Comparison is made with prior study dated September 18, 2012. FINDINGS: Normal soft tissue structures. Normal calvarium. There is moderate cerebral atrophy with widening of the extra-axial spaces and ventricular dilatation. There are areas of decreased attenuation within the white matter tracts of the supratentorial brain, consistent with microvascular disease changes. Stable appearance of the encephalomalacia in both frontal lobes worse on the right side. Stable focal encephalomalacia along the anterior aspect of the right temporal lobe. Focal encephalization of in the medial aspect of the left occipital lobe in keeping with prior infarction. Normal basal ganglia and thalami. Normal brainstem. Normal cerebellum. There is no intracranial hemorrhage. There are no findings of an acute ischemic infarction. Normal visualized paranasal sinuses. CT/Brain/Head without Contrast IMPRESSION: Chronic involutional changes of the brain. 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 Electronically Signed: Eren Sexton MD at 12:56 EDT Tel [phone], Service support ,
--- NOTE | 2017-11-12 12:18 | RAD_ITS ---
STUDY: X-RAY CHEST REASON FOR EXAM: Male, 82 years old. Weakness. Altered mental status. TECHNIQUE: Single AP portable view of the chest. COMPARISON: Comparison is made with prior study dated June 25, 2013. FINDINGS: EKG electrodes are seen. There is a small to moderate right pleural effusion with underlying atelectasis. I also suspect a 4.5 cm x 4.6 cm right infrahilar mass. Small left pleural effusion with left basilar atelectasis. Normal size heart. Normal mediastinum and jeimy. Normal visualized pulmonary arteries. Normal visualized aortic arch and descending thoracic aorta. There are degenerative changes of the visualized thoracic spine. There is degenerative osteoarthritis of the bilateral shoulders. There is no demonstrated abnormality of the visualized soft tissue structures of the upper abdomen. RAD/Chest 1 View (Portable) IMPRESSION: Bilateral pleural effusions right greater than left. Findings suggestive by 4.5 cm x 4.6 cm mass in the right infrahilar region. Electronically Signed: Eren Sexton MD at 13:13 EDT Tel [phone], Service support ,
--- NOTE | 2017-11-12 12:18 | EKG12_ITS ---
Test Reason : ALTERED MENTAL STATU Blood Pressure : / mmHG Vent. Rate : 079 BPM Atrial Rate : 079 BPM P-R Int : 242 ms QRS Dur : 084 ms QT Int : 368 ms P-R-T Axes : 019 052 058 degrees QTc Int : 421 ms Sinus rhythm with sinus arrhythmia with 1st degree A-V block Otherwise normal ECG Confirmed by JOSR CANTOR, HANNA ([id number]), index editor KIARA BARON ([id number]) on 11/14/2017 11:35:26 AM Referred By: NAYELY Confirmed By:HANNA OVALLES MD
[2017-11-12 12:44] LABS: Absolute Lymphocyte Count 1.33 X10^3/ul (0.83-4.51); Absolute Neutrophil Count 8.1 X10^3/uL (2.0-7.7); Basophil# 0.02 X10^3/uL; Basophil% 0.2 % (0-1); Eosinophil# 0.38 X10^3/uL; Eosinophils% 3.6 % (0-5); Hematocrit 41.5 % (40-54); Hemoglobin 12.9 g/dl (13.0-16.5); Lymphocyte # 1.33 X10^3/ul (4.0); Lymphocyte % 12.7 % (19-41); Mean Corp Hgb Conc 31.1 g/gl (32-36); Mean Corpuscular Volume 86.8 fL (80-94); Mean Platelet Vol. 9.5 fl (6.2-12.0); Monocyte# 0.66 X10^3/uL; Monocyte% 6.3 % (0-10); Neutrophil # 8.06 X10^3/uL (2.7-7.7); Neutrophil % 77.1 % (47-70); Platelet Count 307 K/mm3 (150-450); RBC Distribution Width CV 15.9 % (11.6-14.6); RBC Distribution Width SD 50.2 fl (35.1-43.9); Red Blood Count 4.78 M/mm3 (4.6-6.2); White Blood Count 10.5 K/mm3 (4.4-11.0)
[2017-11-12 12:47] LABS: POSITIVE COUNT NO; POSITIVE DIFFERENTIAL NO; POSITIVE MORPHOLOGY NO
[2017-11-12 13:05] LABS: Anion Gap 3 (5-15); BUN 20 mg/dL (7-18); BUN/Creat Ratio 12.1 RATIO (10-20); Calcium,Total 9.1 mg/dL (8.5-10.1); Chloride 104 mmol/L (98-107); Creatinine, Serum 1.65 mg/dL (0.70-1.30); EST Glomerular Filtration Rate 43 mL/min (>60); Est Glom Filt Rate - Afr Amer 52 mL/min (>60); Estimated Creatinine Clearance 33.97 ml/min; Glucose 164 mg/dL (74-106); Potassium 4.9 mmol/L (3.5-5.1); Sodium Level 137 mmol/L (136-145)
[2017-11-12] MEDS: 0.9% Normal Saline 1,000 ML 150 ML IV (13:19)
[2017-11-12 13:20] LABS: Bacteria 0 SEEN /hpf (None Seen); Mucous, Urine 0 SEEN /hpf (<or=2+); Red Blood Cells-Urine 0 SEEN /hpf (0-5); White Blood Cells 0 SEEN /hpf (0-5)
[2017-11-12 13:25] LABS: Color, Urine Straw (Yellow); Glucose, Dipstick Normal (Normal); Ketone-Dipstick Negative (Negative); Leukocyte Esterase-Dipstick Negative /ul (Negative); Nitrite-Dipstick Negative (Negative); Occult Blood-Urine Negative /ul (Negative); Protein-Dipstick Negative (Negative); Urine Bilirubin Dipstick Negative (Negative); Urine Clarity Clear (Clear); Urine Urobilinogen Normal (Normal)
[2017-11-12 13:36] LABS: Squamous Epithelial Cells - UA 0-5 SEEN /hpf (0-5)
--- NOTE | 2017-11-12 14:25 | ED.DCSUM_ITS ---
- ER Visit Summary Date of Service: 11/12/17 Chief Complaint: [Mental status change] History of Present Illness: The patient is a 82 M [presents the emergency department from [facility] with complaint of a mental status change occurred about 45 minutes to an hour prior to coming in the emergency department. Patient apparently was not responding like normal and. Confused and disoriented. On arrival patient denies any pain. Patient denies any weakness. He denies headache. Patient states that he slept okay last night. Patient is only alert to self does not know the place or time. Patient's son who is with him states that this is unusual for him to behave this way. Patient does have a history of some depression, diabetes, history of traumatic brain injury in 1987, and high cholesterol.] Physical Examination: [HEENT-PERRLA, EOMI. Cranial nerves II through XII grossly intact. TMs clear. Mucous membranes moist. No adenopathy. Cardiovascular-regular rate and rhythm without murmur or ectopy Lungs-clear to auscultation, chest wall stable without crepitus or subcu emphysema Abdomen-normoactive bowel sounds, soft, nontender, no rebound or rigidity, no peritoneal signs. Neuro exam-NIH stroke scale 0. No facial droop. No dysarthria. No weakness in the upper or lower extremities. No ataxia noted. Babinski's downgoing bilaterally. Extremities-intact ?4, normal range of motion, normal pulses, atraumatic] Test Results: [EKG obtained on arrival showed a sinus rhythm with a ventricular rate 79 bpm with a first-degree AV block. CBC with differential showing a 10.5 , hemoglobin 12.9, hematocrit 41, platelets 307. Sodium is 137, potassium 4.9, chloride 104, CO2 30, glucose 164, BUN 20, creatinine 1.65. Urinalysis was normal. CT scan of the brain showed chronic involutional changes. Chest x-ray showed bilateral effusions right greater than left and a 4.5 x 4.6 cm right infrahilar mass.] Emergency Department Course and Treatment: [Patient was given normal saline in the emergency department in case was discussed with hospitalist will evaluate patient for admission] Treatment Plan: [Admit] Disposition: [Admit] Impression: [Mental status change-etiology uncertain Right lung mass Bilateral pleural effusions] This note was generated with Dragon dictation software. It may contain incorrect words, spelling, and punctuation that were not noted in review of the chart prior to signing ED Disposition - Plan for ED Patient: Chief Complaint: Alt LOC Referrals: Dm El MD [Primary Care Provider] -
--- NOTE | 2017-11-12 14:55 | NURSING ---
PCU MENTAL STATUS CHANGE, LUNG MASS TERELETSKY
--- NOTE | 2017-11-12 14:58 | NURSING ---
CALLED [facility] [place] TO SEND.
[2017-11-12 17:01] LABS: Bedside Glucose 116 mg/dL (70-110)
--- NOTE | 2017-11-12 18:48 | CT_ITS ---
STUDY: CT CHEST WITHOUT CONTRAST REASON FOR EXAM: Male, 82 years old. Right infrahilar mass RADIATION DOSAGE (If Supplied By Facility): CTDIvol = ( 19.94 ) mGy, DLP = ( 622.76 ) mGycm TECHNIQUE: Transaxial imaging was performed without the administration of intravenous contrast material. Individualized dose optimization techniques were used for this CT. COMPARISON: None. FINDINGS: The study is technically limited, being performed without intravenous contrast. There is a right perihilar mass measuring approximately 6.5 x 3.2 x 6.2 cm. There is a moderate-sized right-sided effusion. There is mild pleural thickening and mild atelectatic changes of the left base. The heart size is within normal limits. There is no pericardial effusion. Coronary arterial calcifications are present. Normal mediastinum. The left hilus is unremarkable. Normal unenhanced pulmonary arteries. Normal aorta arch and descending thoracic aorta. The bones are osteopenic. There is diffuse endplate spondylosis of the visualized thoracolumbar spine. No lytic or blastic osseous changes are noted. There is no demonstrated abnormality of the visualized upper abdomen. CT/Chest without Contrast IMPRESSION: 1. Right perihilar mass measuring approximately 6.5 x 3.2 x 6.2 cm. There are air bronchograms in the medial aspect of this mass, suggesting that this mass at least partially represents atelectasis. 2. Mild pleural thickening and atelectatic changes of the left base. 3. Coronary arterial calcifications are present. 4. The bones are osteopenic. There is diffuse endplate spondylosis of the visualized thoracolumbar spine. 5. If clinically indicated, CT thorax with contrast may be helpful for further evaluation. Electronically Signed: Dennis Greenberg MD at 20:37 EDT , Service support ,
--- NOTE | 2017-11-12 20:32 | PCM.HP.STD ---
Problem List (1) Change in mental status Status: Acute Qualifiers: Altered mental status type: unspecified Qualified Code(s): R41.82 - Altered mental status, unspecified History of Present Illness Date of Admission: 11/12/17 Chief Complaint: Mental status change The patient is a 82 year old M who was seen in the emergency room at [facility] after being brought in from [facility], the staff at [facility] noted that the patient's mental status had changed today and he was not talking as much or participating in activities that he usually participated in. Patient has a history of closed head trauma, he had been admitted previously earlier this year in April, at that time, according to documentation, patient was only aware of self and not time or place. Review of systems was unobtainable from the patient due to cognitive impairment. Evaluation in the emergency room included labs which revealed a normal WBC, hemoglobin was 12.9, BUN was 20, creatinine was 1.65, glucose was 164, and his urinalysis was unremarkable. Chest x-ray was obtained which showed a possible right lung mass, brain CT showed chronic involutional changes and stable areas of malacia involving the frontal lobes as well as the left medial occipital lobe and right anterior temporal lobe. At the time of my examination, patient was alert and was only oriented as to self, he did not appear to be in any distress, lungs were clear, heart rate and rhythm is regular. Patient was admitted to PCU for mental status change and right lung mass, I will perform a CT of his chest with contrast, he may need an MRI of his brain to rule out metastatic cancer. Past Medical History Past Medical History (Chronic Problems): Chronic Problems (This Medical Record has been edited. Action required.) History of traumatic brain injury (Chronic) Hyperlipidemia (Chronic) Obesity (BMI 30.0-34.9) (Chronic) Anxiety and depression (Chronic) Diabetes mellitus, type II (Chronic) Allergies No Known Allergies Allergy (Verified 05/30/15 00:18) Home Medications: Ambulatory Orders Medication Instructions Recorded Atorvastatin Calcium [Lipitor] 20 mg PO QHS 06/25/13 Furosemide [Lasix] 40 mg PO DAILY 01/08/14 Acetaminophen 1,000 mg PO Q6H PRN 04/30/17 Guaifenesin/Dextromethorphan 20 ml PO Q4H PRN PRN 04/30/17 [Robafen Dm Cgh-Chest Rizwan Syrp] Ibuprofen 400 mg PO Q6H PRN PRN 04/30/17 Insulin Glargine,Hum.rec.anlog 30 units SQ DAILY 04/30/17 [Lantus] Insulin Lispro [Humalog] 8 unit SQ TIDCM 04/30/17 Loperamide [Imodium] 4 mg PO PRN PRN 04/30/17 Loratadine 10 mg PO DAILY 04/30/17 Sertraline HCl [Zoloft] 100 mg PO DAILY 04/30/17 traMADol [Ultram] 50 mg PO PRN PRN 04/30/17 Acetaminophen [Tylenol] 650 mg PO BID 11/12/17 Surgical History: - - Appendectomy, Back Surgery. Psychiatric History: Anxiety, Depression, - - Cognitive impairment Lives: - - assisted living Smoking Status: Former smoker Tobacco Use: Pipe Alcohol: None Drugs: None - *Family History Maternal History Items: No pertinent history Paternal History Items: Stroke - CVA in mid-60s. Review of Systems Comment: Review of systems unobtainable from the patient due to cognitive impairment VTE Information - Inpt Only VTE Present on Admission: No VTE Mechan Device Prophylaxis: SCD's VTE Pharm Prophylaxis ordered?: No Reason prophylaxis not ordered:: Treatment Not Indicated - SCD's ordered Patient Problems: Active and Suspected Problems (This Medical Record has been edited. Action required.) Change in mental status (Acute) - Physical Exam General: Alert, Cooperative, No apparent distress, Well developed, Confused HEENT: Atraumatic, Normocephalic Oral: Moist Mucosa Neck: Supple, No JVD, No Nuchal Rigidity, Trachea Midline, Thyroid Normal Size and Texture Lungs: Clear to auscultation, Normal air movement, No rhonchi, No wheeze, No rales Cardiovascular: Regular rate, Regular Rhythm, Normal S1, Normal S2, No murmurs, No Ectopic Activity, PMI Normal, No rub noted, No Gallop Abdomen: Bowel Sounds Present, Soft, Non Tender, Non-Distended, No hernias noted Extremities: No clubbing, No cyanosis, No edema, Capillary Refill Less than 3 Seconds Skin: No rashes, No breakdown Musculoskeletal: No Tenderness to Palpation of Joints or Extremities Neurological: Cranial nerves II-XII grossly intact, Neuro grossly intact, - - Patient is alert but confused Psych/Mental Status: Flat Affect, - - Patient is alert but confused Vital Signs Temp Pulse Resp BP Pulse Ox 97.4 F L 82 16 141/59 H 98 11/12/17 16:20 11/12/17 16:20 11/12/17 16:20 11/12/17 16:20 11/12/17 16:20 Oxygen Delivery Method Room Air Weight: 91.3 kg Body Mass Index (BMI) 31.5 POC Glucose 11/12/17 16:54 POC Glucose 116 H Assessment/Plan All Active Problems (This Medical Record has been edited. Action required.) Change in mental status (Acute) #1 mental status change in a patient with a past history of traumatic brain injury-and a backdrop of cognitive impairment-etiology unknown at this time, patient's labs do not indicate a particular reason for this mental status change, patient may need an MRI of the brain to further investigate this. I will be talking with the patient's son tomorrow who is the POA #2 right lung mass-I will order CT of the chest, will need to discuss this with the son after the results are back, he may not elect to treat this if it turns out to be carcinoma #3 Hypertension #4 type 2 diabetes #5 cognitive impairment/ ? Dementia Code Visit Inpatient E&M: 15534 Init Hosp L3
[2017-11-12] MEDS: 0.9% Normal Saline 1,000 ML 75 ML IV (22:01)
[2017-11-12] MEDS: Insulin Lispro 100 UNIT/ML INSULN.PEN SC (22:06)
[2017-11-12 22:46] LABS: Bedside Glucose 158 mg/dL (70-110)
--- NOTE | 2017-11-12 23:22 | EKG12_ITS ---
Test Reason : ABNORMAL RHYTHM Blood Pressure : / mmHG Vent. Rate : 099 BPM Atrial Rate : 099 BPM P-R Int : 276 ms QRS Dur : 082 ms QT Int : 330 ms P-R-T Axes : 040 075 047 degrees QTc Int : 423 ms Sinus rhythm with 1st degree A-V block Low voltage QRS (limb leads) Confirmed by JOSR CANTOR, HANNA ([id number]), editor sound KIARA BARON ([id number]) on 11/18/2017 3:57:07 PM Referred By: MARAL Confirmed By:HANNA OVALLES MD
[2017-11-13] VITALS (18 sets, daily range): BP systolic 107–171; BP diastolic 66–90; PULSE 79–103; RESP 16–18; TEMP 36.4–37.1; O2SAT 92–100
--- NOTE | 2017-11-13 | FLU_PTH ---
PATIENT: JACKIE TAN LOC: [facility] U#:[id number] AGE/SX: 82/M ROOM: [facility] RE11/12/[address]: Dr. Miky Savage DO : 1935 BED: 1 DIS: 11/14/2017 SPEC #: [id number] RECD: 11/13/17 11:35 STATUS: DICKSON ANA #: [id number] MC: 11/13/17 00:[address]: Miky Savage DEPT: CYTOLOGY RECD BY: Lovely Mohan ENTERED: 11/13/17 12:05 SP TYPE: Fluid OTHR DR: DO Dr. Dm Renae MD Tissues: THORACIC FLUID Procedures: Pap Stain (control) Special Stain Group II Surgery Specimen Level IV Cell Block Cytospin Fluid HEADER OPERATION: Ultrasound guided thoracentesis, right PRE-OP DIAGNOSIS: ALT LOC; right pleural effusion TISSUE SUBMITTED: Thoracentesis fluid for cytology DIAGNOSIS CYTOLOGY Thoracentesis fluid for cytology (cytospin and cell block): Negative for malignant cells. SJ:rg 11/14/17 COMMENT Clinical correlation and appropriate follow up are necessary. CYTOLOGY STUDY Slides are reviewed. The specimen predominantly consists of small lymphocytes. CYTOLOGY GROSS Received is 100 ml of hazy caryn fluid labeled with the patient's name and and designated per the requisition as thoracentesis fluid. Submitted for cytology preparation including cell block. /CC:cc 11/13/17 TC:5 CPT: 91352, 28822
[2017-11-13 06:35] LABS: Prothrombin Time (Protime)PT. 13.1 SECONDS (11.7-14.9)
[2017-11-13 06:45] LABS: Anion Gap 7 (5-15); BUN 19 mg/dL (7-18); BUN/Creat Ratio 13.9 RATIO (10-20); Calcium,Total 8.1 mg/dL (8.5-10.1); Chloride 106 mmol/L (98-107); Creatinine, Serum 1.37 mg/dL (0.70-1.30); EST Glomerular Filtration Rate 53 mL/min (>60); Est Glom Filt Rate - Afr Amer 64 mL/min (>60); Estimated Creatinine Clearance 39.54 ml/min; Glucose 92 mg/dL (74-106); Potassium 4.6 mmol/L (3.5-5.1); Sodium Level 141 mmol/L (136-145)
[2017-11-13 07:01] LABS: Bedside Glucose 95 mg/dL (70-110)
--- NOTE | 2017-11-13 07:59 | US_ITS ---
PROCEDURE: ULTRASOUND GUIDED THORACENTESIS. DATE: November 13, 2017. INDICATION: Male, 82 years old. Right pleural effusion. PHYSICIAN: Eren Sexton M.D. PROCEDURE: The risks, benefits, and alternatives to the procedure were explained to the patient and patient's son. The specific risks of bleeding, infection, and pneumothorax requiring chest tube insertion were discussed and accepted. Written informed consent was obtained. Ultrasonographic evaluation of the right lower pleural space was carried out. An adequate pocket was identified. The patient was placed in the sitting, upright position. The overlying skin was prepped and draped in sterile fashion. 1% lidocaine was administered subcutaneously for local anesthesia. Under ultrasound guidance, a 6 Nepali thoracentesis needle/catheter system was advanced into the right posterior lower pleural fluid collection. Approximately 220 mL of dark caryn fluid was drained. The catheter was removed, and a sterile dressing was applied. A specimen was collected and sent to the laboratory for analysis, as requested by the referring clinician. The patient tolerated the procedure well. A chest x-ray was ordered. US/Thoracentesis W US IMPRESSION: Ultrasound-guided right thoracentesis. Electronically Signed: Eren Sexton MD at 12:38 EDT Tel [phone], Service support ,
--- NOTE | 2017-11-13 08:02 | PCM.CONS.GEN ---
Reason for Consult Date of Consultation: 11/13/17 Reason for Consultation: Lung mass History of Present Illness: The patient is an 82-year-old male, with a history as outlined below, who presented to the emergency department on November 12 from his nursing facility with altered mentation. The patient is an extremely poor historian so very little history could be obtained pertinent to this hospitalization. The patient does not recall why he was admitted to the hospital in the first place. He reportedly has a history of traumatic brain injury. However, his baseline mentation/cognition is not known. The patient does report a prior smoking history, stating that he smoked a pipe for a number of years. However, he cannot recall if he ever smoked cigarettes and when exactly he quit utilizing tobacco completely. On presentation to the emergency department, the patient was noted to be afebrile and hypertensive. He was maintaining appropriate oxygen saturations on room air. Laboratory evaluation revealed no evidence of a leukocytosis. Chemistry profile revealed elevated creatinine 1.65. Troponin was negative. Urinalysis was unremarkable. CT head revealed chronic involutional changes of the brain along with stable appearing areas of encephalomalacia. A plain film chest x-ray revealed evidence of bilateral pleural effusions and a potential right infrahilar mass. The patient was subsequently admitted to the progressive care unit for further workup of his altered mentation. Last evening, a CT chest without contrast was obtained due to the patient's renal insufficiency. That imaging study did confirm the presence of a 6 x 6 cm right perihilar mass along with a moderate-sized right-sided pleural effusion. There are no prior CAT scans available in our system for review. Past Medical History Past Medical History (Chronic Problems): Chronic Problems (This Medical Record has been edited. Action required.) History of traumatic brain injury (Chronic) Hyperlipidemia (Chronic) Obesity (BMI 30.0-34.9) (Chronic) Anxiety and depression (Chronic) Diabetes mellitus, type II (Chronic) Allergies No Known Allergies Allergy (Verified 05/30/15 00:18) Home Medications: Ambulatory Orders Medication Instructions Recorded Atorvastatin Calcium [Lipitor] 20 mg PO QHS 06/25/13 Furosemide [Lasix] 40 mg PO DAILY 01/08/14 Acetaminophen 1,000 mg PO Q6H PRN 04/30/17 Guaifenesin/Dextromethorphan 20 ml PO Q4H PRN PRN 04/30/17 [Robafen Dm Cgh-Chest Rizwan Syrp] Ibuprofen 400 mg PO Q6H PRN PRN 04/30/17 Insulin Glargine,Hum.rec.anlog 30 units SQ DAILY 04/30/17 [Lantus] Insulin Lispro [Humalog] 8 unit SQ TIDCM 04/30/17 Loperamide [Imodium] 4 mg PO PRN PRN 04/30/17 Loratadine 10 mg PO DAILY 04/30/17 Sertraline HCl [Zoloft] 100 mg PO DAILY 04/30/17 traMADol [Ultram] 50 mg PO PRN PRN 04/30/17 Acetaminophen [Tylenol] 650 mg PO BID 11/12/17 Surgical History: - - Appendectomy, Back Surgery. Psychiatric History: Anxiety, Depression Smoking Status: Former smoker Tobacco Use: Pipe - *Family History Maternal History Items: No pertinent history Paternal History Items: Stroke - CVA in mid-60s. Review of Systems Unable to obtain accurate/complete ROS d/t: Due to poor baseline cognition. Patient Problems: Active and Suspected Problems (This Medical Record has been edited. Action required.) Change in mental status (Acute) Objective: The patient's most recent lab work, culture data and imaging studies have all been personally reviewed. - Physical Exam General: Alert, Cooperative, Confused, Disoriented HEENT: Atraumatic, PERRLA, Normocephalic Oral: No Gingival or Mucosal Lesions/ Ulcerations Neck: Supple, No Nodes, Trachea Midline Lungs: No rhonchi, No wheeze, Diminished, Rales, - - Diminished primarily in right lung base. Cardiovascular: Regular rate, Regular Rhythm, Normal S1, Normal S2, No murmurs Abdomen: Bowel Sounds Present, Soft, Non Tender Extremities: No clubbing, No cyanosis, No edema Skin: No rashes Musculoskeletal: No Tenderness to Palpation of Joints or Extremities Lymphatic: No Cervical, Supraclavicular, or Inguinal Adenopathy Neurological: - - No focal neurological deficits. Psych/Mental Status: Flat Affect Vital Signs Temp Pulse Resp BP Pulse Ox 97.5 F L 80 16 152/69 H 94 11/13/17 04:00 11/13/17 07:15 11/13/17 04:00 11/13/17 04:00 11/13/17 07:36 Oxygen Delivery Method Room Air Weight: 201 lb 4.513 oz Body Mass Index (BMI) 31.5 Intake and Output for Last 24 Hours 11/11/17 11/12/17 11/13/17 23:59 23:59 23:59 Intake Total 907 / 907 Balance 907 / 907 Laboratory Tests Past 24 Hrs 11/13/17 11/13/17 05:40 05:40 PT 13.1 INR 1.0 Sodium 141 Potassium 4.6 Chloride 106 Carbon Dioxide 28.0 Anion Gap 7 BUN 19 H Creatinine 1.37 H Estim Creat Clear Calc 39.54 Est GFR (MDRD) Af Amer 64 Est GFR (MDRD) Non-Af 53 L BUN/Creatinine Ratio 13.9 Glucose 92 Calcium 8.1 L POC Glucose 11/13/17 11/12/17 11/12/17 06:49 22:04 16:54 POC Glucose 95 158 H 116 H Clinical Impression(s) from Imaging Studies Brain CT 11/12/17 12:18 IMPRESSION: Chronic involutional changes of the brain. 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 Electronically Signed: Eren Sexton MD at 12:56 EDT Tel [phone], Service support , Chest X-Ray 11/12/17 12:18 IMPRESSION: Bilateral pleural effusions right greater than left. Findings suggestive by 4.5 cm x 4.6 cm mass in the right infrahilar region. Electronically Signed: Eren Sexton MD at 13:13 EDT Tel [phone], Service support , Chest CT 11/12/17 18:48 IMPRESSION: 1. Right perihilar mass measuring approximately 6.5 x 3.2 x 6.2 cm. There are air bronchograms in the medial aspect of this mass, suggesting that this mass at least partially represents atelectasis. 2. Mild pleural thickening and atelectatic changes of the left base. 3. Coronary arterial calcifications are present. 4. The bones are osteopenic. There is diffuse endplate spondylosis of the visualized thoracolumbar spine. 5. If clinically indicated, CT thorax with contrast may be helpful for further evaluation. Electronically Signed: Dennis Greenberg MD at 20:37 EDT , Service support , Assessment/Plan All Active Problems (This Medical Record has been edited. Action required.) Change in mental status (Acute) RECOMMENDATIONS: 1. Noncontrasted chest CT overnight with imaging personally reviewed. Recommend proceeding with ultrasound-guided thoracentesis of the right-sided pleural effusion. 2. Obtain MR brain to evaluate for potential metastatic lesions, given concern for underlying lung malignancy. 3. Send pleural fluid for cell count, culture, LDH, total protein and cytology. Orders have been placed accordingly. 4. Encourage incentive spirometer use and mobilize patient as tolerated. IMPRESSIONS: 1. Right-sided perihilar lung mass with associated pleural effusion The patient's perihilar right-sided lung mass is certainly concerning for potential malignancy. Given that is associated with a moderate sized pleural effusion, would recommend proceeding with ultrasound-guided thoracentesis for diagnostic purposes. Send fluid for cytology. If there is evidence of malignant cells, this will not only confirm a diagnosis but assign a stage. Orders have been placed for pleural fluid studies. Tentative plans for thoracentesis in radiology this afternoon. If pleural fluid cytology is negative, would need to then consider bronchoscopic evaluation to facilitate hilar mass tissue sampling. 2. Altered mentation Unclear with the patient's baseline mentation is light. This will need to be clarified with family members. However, given the concern for potential underlying pulmonary malignancy, it is reasonable to obtain further head imaging with MRI to rule out potential metastatic disease. 3. Acute versus chronic kidney disease The patient appears to have a baseline component of chronic kidney disease. His creatinine was elevated at presentation to the hospital but has improved with gentle IV fluid hydration. 4. Personal history of traumatic brain injury/hypertension/hyperlipidemia/diabetes mellitus Complicates care, management, recovery and prognosis. Likely okay to continue home medications as indicated. Recommend physical therapy evaluation. This note was generated with Reapp[employer]ation software. It may contain incorrect words, spelling, and punctuation that were not noted in checking the note before signing. Code Visit Inpatient E&M: 06149 Init Hosp L3
--- NOTE | 2017-11-13 08:23 | MRI_ITS ---
STUDY: MRI BRAIN WITH AND WITHOUT CONTRAST REASON FOR EXAM: Male, 82 years old. Confusion and altered mental status TECHNIQUE: Standardized multiplanar fat and water weighted pulse sequences were obtained. 10 ml of Gadavist contrast material was administered intravenously for the contrast portion of the examination. COMPARISON: None. FINDINGS: Moderate atrophy There is disproportionate dilatation of the lateral ventricles with respect to cortical sulci and possibility of normal pressure hydrocephalus is not excluded. There are chronic ischemic changes within the right temporal and parietal lobes as well as the left temporal lobe. There is gliosis within the frontal lobes bilaterally with porencephalic dilatation of the lateral ventricles consistent with old infarcts or other nonspecific brain injury. There are also old infarcts in the occipital lobes Chronic ischemic changes are seen within the bina. Normal bilateral basal ganglia. Normal thalami. There is no extra-axial fluid accumulation. Normal flow voids within the major intracranial circulation suggesting patency by spin echo criteria. Normal venous enhancement. There is no enhancing intra-axial or extra-axial abnormality. There is hemosiderin deposition within the inferior frontal lobes consistent with old hemorrhagic contusions Empty sella deformity of uncertain significance. Normal, infundibular stalk, optic chiasm and hypothalamus. Normal tectal plate and pineal gland. Normal midbrain, and medulla. Normal cerebellum. Normal basal cisterns. Normal bilateral temporal bones. Normal bilateral internal auditory canals. Fluid signal noted within left mastoid consistent with inflammatory disease No demonstrated orbital abnormality, within the constraints of a routine brain study. Minor mucosal thickening within the maxillary and ethmoid sinuses bilaterally. Sinuses. Normal calvarium and skull base. Normal visualized soft tissue structures. Normal visualized upper cervical spine. MRI/Brain W/WO Contrast IMPRESSION: Chronic ischemic changes within the bilateral temporal and right parietal lobes as well as the occipital lobes. There are also findings consistent with chronic bilateral frontal lobe infarcts or other nonspecific brain injury in association with hemosiderin. Chronic ischemic changes within the bina No evidence for acute infarct. No evidence for brain metastasis. Cannot exclude evolving normal pressure hydrocephalus. Electronically Signed: Gunnar Razo MD at 20:30 EDT , Service support ,
[2017-11-13 08:48] LABS: ALB/GLOB Ratio 0.7 RATIO (0.9-2.4); Globulin 3.8 g/dL (2.2-4.2); LDH 179 U/L (87-241); Protein, Total 6.4 g/dL (6.4-8.2)
--- NOTE | 2017-11-13 08:58 | PCM.HOSP.N ---
Hospitalist Note I talked with patient's son this morning who is his POA, patient has a large right lung mass, I will plan to either have this biopsied under CT or he may need a bronchoscopy, this is okay with the son, son would like to know if it is indeed cancer, he does not feel at this time that he would want treatment if his lung cancer due to the patient's mental status and overall physical shape. I told him I was going to order an MRI of the brain today, he was okay with this.
[2017-11-13 09:01] LABS: Partial Thromboplast Time 33.5 Seconds (24.1-36.2)
[2017-11-13] MEDS: 0.9% Normal Saline 1,000 ML 75 ML IV (09:56)
--- NOTE | 2017-11-13 11:26 | RAD_ITS ---
STUDY: X-RAY CHEST REASON FOR EXAM: Male, 82 years old. Post thoracentesis. TECHNIQUE: AP inspiration and expiration views. COMPARISON: Comparison is made with prior examination dated November 12, 2017. FINDINGS: EKG electrodes are seen. The patient is status post right thoracentesis. There is no evidence of pneumothorax. Residual blunting of both costophrenic angles. Persistent right infrahilar mass. RAD/Chest Insp/Exp 2 View IMPRESSION: Status post right thoracentesis. There is no evidence of pneumothorax. Electronically Signed: Eren Sexton MD at 13:11 EDT Tel [phone], Service support ,
[2017-11-13 11:45] LABS: Cytology, Body Fluid / CSF SEE PATHOLOGY REPORT
--- NOTE | 2017-11-13 11:52 | CASEMGMT ---
Addendum entered by Debbie Trejo 11/13/17 14:18: 1415 This RN CM to room to complete CM assessment and pt is out of the dept for testing at this time. Will attempt again later. Jeffrey WILLIAMSON CM Original Note: This RN CM to room to complete CM assessment and pt is sleeping without distress at this time and does not awaken to verbal stimuli or knock on the door. Will attempt again later. Jeffrey WILLIAMSON CM
[2017-11-13 12:02] LABS: Body Fluid Mononuclear WBC # 0.243 10^3/uL; Body Fluid Mononuclear WBC % 94.6 %; Body Fluid Polynuclear WBC # 0.014 10^3/uL; Body Fluid Polynuclear WBC % 5.4 %; Body Fluid Total Cells Counted 0.258 10^3/ul; White Blood Count/Body Fluid 0.257 10^3/uL
[2017-11-13 12:11] LABS: Bedside Glucose 100 mg/dL (70-110)
[2017-11-13 12:45] LABS: Auto B Fluid Analyzer BKGD Ct COUNTS W/IN LIMITS (W/IN LIMITS)
[2017-11-13 12:46] LABS: Source- Body Fluid THORACENTESIS
[2017-11-13 12:47] LABS: Appearance/Body Fluid SL CLDY; Color/Body Fluid YELLOW
[2017-11-13 12:48] LABS: Red Cell Count/Body Fluid 934 /mm3
[2017-11-13 13:01] LABS: Glucose, Body Fluid 82 mg/dL (40-70); LDH,Body Fluid 282 Units/l (Not Establ.); Protein, Body Fluid 2.8 g/dL (Not Establ.)
[2017-11-13] MEDS: Sertraline 100 MG Tablet PO (13:04)
[2017-11-13 13:17] LABS: Body Fluid QC Type(s) BF1; Lymphocytes 85 %; Monocytes 8 %; Neutrophil (Segs) 7 %
[2017-11-13 16:55] LABS: Bedside Glucose 100 mg/dL (70-110)
--- NOTE | 2017-11-13 20:33 | PCM.PROGNOTE ---
Patient Problems: Active and Suspected Problems (This Medical Record has been edited. Action required.) Change in mental status (Acute) Subjective: Patient was seen and examined today, he responds to simple commands but overall his mental status is unchanged from yesterday. Patient underwent a thoracentesis of the right hemithorax today due to the finding of a large mass in his right lung. I talked briefly with pulmonary medicine about this and they felt that this was the best approach to diagnosing if the mass is cancerous. Patient had an MRI of the brain performed today which showed chronic changes and old infarcts only, nothing new, no evidence of metastases was noted on the brain MRI. At the present time, we will provide supportive care for the patient, he does not appear to be in any distress, we will await pathology report on the thoracentesis fluid. - Physical Exam General: No apparent distress, Well developed HEENT: Atraumatic, PERRLA, Normocephalic Oral: Moist Mucosa Neck: Supple, No JVD, No Nuchal Rigidity, Trachea Midline, Thyroid Normal Size and Texture Lungs: Clear to auscultation, Normal air movement, No rhonchi, No wheeze, No rales Cardiovascular: Regular rate, Regular Rhythm, Normal S1, Normal S2, No murmurs, PMI Normal, No rub noted, No Gallop Abdomen: Bowel Sounds Present, Soft, Non Tender, Non-Distended, No hernias noted Extremities: No clubbing, No cyanosis, No edema Neurological: Cranial nerves II-XII grossly intact, Neuro grossly intact, - - Patient is lethargic but follows some commands Psych/Mental Status: Flat Affect Vital Signs Temp Pulse Resp BP Pulse Ox 97.9 F 97 16 171/81 H 95 11/13/17 20:26 11/13/17 20:26 11/13/17 20:26 11/13/17 20:26 11/13/17 20:26 Oxygen Flow Rate (L/min) 2 Oxygen Delivery Method Room Air Weight: 91.3 kg Body Mass Index (BMI) 31.5 Intake and Output for Last 24 Hours 11/11/17 11/12/17 11/13/17 23:59 23:59 23:59 Intake Total 1736 / 1736 Balance 1736 / 1736 Microbiology Past 72 Hours 11/13/17 11:15 Gram Stain - Final Fluid - Thoracentesis Fluid Laboratory Tests Past 24 Hrs 11/13/17 11/13/17 11/13/17 05:40 05:40 05:40 PT 13.1 INR 1.0 APTT Sodium 141 Potassium 4.6 Chloride 106 Carbon Dioxide 28.0 Anion Gap 7 BUN 19 H Creatinine 1.37 H Estim Creat Clear Calc 39.54 Est GFR (MDRD) Af Amer 64 Est GFR (MDRD) Non-Af 53 L BUN/Creatinine Ratio 13.9 Glucose 92 Calcium 8.1 L Lactate Dehydrogenase 179 Total Protein 6.4 Globulin 3.8 Albumin/Globulin Ratio 0.7 L Fluid Source Fluid Color Fluid Appearance Fluid WBC Fluid RBC Fluid Tot Cell Count Fld Polynuclear WBCs # Fld Polynuclear WBCs % Fluid Mononuclear WBCs Fld Mononuclear WBCs % Fluid Neutrophils Fluid Lymphocytes Fluid Monocytes Fl Pathologist Comment Fluid Glucose Fluid Total Protein Fluid LDH Fluid Comment 2 Miscellaneous Cytology 11/13/17 11/13/17 11/13/17 05:40 11:15 11:15 PT Cancelled INR Cancelled APTT 33.5 Sodium Potassium Chloride Carbon Dioxide Anion Gap BUN Creatinine Estim Creat Clear Calc Est GFR (MDRD) Af Amer Est GFR (MDRD) Non-Af BUN/Creatinine Ratio Glucose Calcium Lactate Dehydrogenase Total Protein Globulin Albumin/Globulin Ratio Fluid Source THORACENTESIS Fluid Color YELLOW Fluid Appearance SL CLDY Fluid WBC 0.257 Fluid RBC 934 Fluid Tot Cell Count 0.258 Fld Polynuclear WBCs # 0.014 Fld Polynuclear WBCs % 5.4 Fluid Mononuclear WBCs 0.243 Fld Mononuclear WBCs % 94.6 Fluid Neutrophils 7 Fluid Lymphocytes 85 Fluid Monocytes 8 Fl Pathologist Comment May follow Fluid Glucose 82 H Fluid Total Protein 2.8 Fluid LDH 282 Fluid Comment 2 SEE COMMENT Miscellaneous Cytology 11/13/17 11:15 PT INR APTT Sodium Potassium Chloride Carbon Dioxide Anion Gap BUN Creatinine Estim Creat Clear Calc Est GFR (MDRD) Af Amer Est GFR (MDRD) Non-Af BUN/Creatinine Ratio Glucose Calcium Lactate Dehydrogenase Total Protein Globulin Albumin/Globulin Ratio Fluid Source Fluid Color Fluid Appearance Fluid WBC Fluid RBC Fluid Tot Cell Count Fld Polynuclear WBCs # Fld Polynuclear WBCs % Fluid Mononuclear WBCs Fld Mononuclear WBCs % Fluid Neutrophils Fluid Lymphocytes Fluid Monocytes Fl Pathologist Comment Fluid Glucose Fluid Total Protein Fluid LDH Fluid Comment 2 Miscellaneous Cytology Pending POC Glucose 11/13/17 11/13/17 11/13/17 16:42 12:05 06:49 POC Glucose 100 100 95 11/12/17 22:04 POC Glucose 158 H Medical Necessity - Tobacco Use Smoking Status: Former smoker Tobacco Use: Pipe Assessment/Plan All Active Problems (This Medical Record has been edited. 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 Dementia Code Visit Inpatient E&M: 34060 Subs Hosp L2
[2017-11-13] MEDS: Insulin Lispro 100 UNIT/ML INSULN.PEN SC (21:22)
[2017-11-13 21:55] LABS: Bedside Glucose 151 mg/dL (70-110)
[2017-11-14] VITALS (9 sets, daily range): BP systolic 150–167; BP diastolic 71–90; PULSE 75–106; RESP 16–20; TEMP 36.4–36.8; O2SAT 93–94
[2017-11-14] MEDS: 0.9% Normal Saline 1,000 ML 75 ML IV (05:53)
[2017-11-14 06:55] LABS: Bedside Glucose 106 mg/dL (70-110)
--- NOTE | 2017-11-14 07:26 | PCM.PROGNOTE ---
Patient Problems: Active and Suspected Problems (This Medical Record has been edited. Action required.) Change in mental status (Acute) Subjective: The patient was seen and examined at the bedside this morning. Events from the last 24 hours have been reviewed. The patient is currently afebrile, hemodynamically stable and maintaining appropriate oxygen saturations on room air. The patient did undergo successful ultrasound-guided thoracentesis yesterday with 220 mL's of dark caryn fluid removed from the patient's right hemithorax. No issues were noted overnight. Patient does not appear significantly different from a mentation perspective from yesterday. Objective: The patient's most recent lab work, culture data and imaging studies have all been personally reviewed. MR brain revealed chronic ischemic changes within the bilateral temporal and right parietal lobes, as well as the occipital lobes. Chronic ischemic changes within the bina was noted. There is no evidence for an acute infarction or brain metastasis. There was additional note of potential evolving normal pressure hydrocephalus. Pleural fluid cell count revealed a lymphocyte predominant exudate, which was fulfilled Light's criteria due to an elevated pleural fluid LDH. Pleural fluid Gram stain revealed no organisms. - Physical Exam General: No apparent distress, Confused, Disoriented, - - Difficult to arouse from sleep. Limited interaction. HEENT: Atraumatic, Normocephalic Oral: Dry Mucosa Neck: Supple, No Nodes, No Nuchal Rigidity Lungs: No rhonchi, No wheeze, No rales, Diminished, - - Poor, patient dependent inspiratory effort. Cardiovascular: Regular rate, Regular Rhythm, Normal S1, Normal S2 Abdomen: Bowel Sounds Present, Soft, Non Tender Extremities: No clubbing, No cyanosis, No edema Skin: - - No significant change from previous. Musculoskeletal: No Tenderness to Palpation of Joints or Extremities Lymphatic: No Cervical, Supraclavicular, or Inguinal Adenopathy Neurological: - - No focal neurological deficits. Psych/Mental Status: Flat Affect Vital Signs Temp Pulse Resp BP Pulse Ox 98.2 F 90 16 165/82 H 94 11/14/17 05:55 11/14/17 07:01 11/14/17 05:55 11/14/17 05:55 11/14/17 05:55 Oxygen Flow Rate (L/min) 2 Oxygen Delivery Method Room Air Weight: 201 lb 4.513 oz Body Mass Index (BMI) 31.5 Intake and Output for Last 24 Hours 11/12/17 11/13/17 11/14/17 23:59 23:59 23:59 Intake Total 2100 368 / 368 Balance 2100 368 / 368 Microbiology Past 72 Hours 11/13/17 11:15 Gram Stain - Final Fluid - Thoracentesis Fluid Laboratory Tests Past 24 Hrs 11/13/17 11/13/17 11/13/17 05:40 05:40 11:15 PT Cancelled INR Cancelled APTT 33.5 Lactate Dehydrogenase 179 Total Protein 6.4 Globulin 3.8 Albumin/Globulin Ratio 0.7 L Fluid Source Fluid Color Fluid Appearance Fluid WBC Fluid RBC Fluid Tot Cell Count Fld Polynuclear WBCs # Fld Polynuclear WBCs % Fluid Mononuclear WBCs Fld Mononuclear WBCs % Fluid Neutrophils Fluid Lymphocytes Fluid Monocytes Fl Pathologist Comment Fluid Glucose 82 H Fluid Total Protein 2.8 Fluid LDH 282 Fluid Comment 2 Miscellaneous Cytology 11/13/17 11/13/17 11:15 11:15 PT INR APTT Lactate Dehydrogenase Total Protein Globulin Albumin/Globulin Ratio Fluid Source THORACENTESIS Fluid Color YELLOW Fluid Appearance SL CLDY Fluid WBC 0.257 Fluid RBC 934 Fluid Tot Cell Count 0.258 Fld Polynuclear WBCs # 0.014 Fld Polynuclear WBCs % 5.4 Fluid Mononuclear WBCs 0.243 Fld Mononuclear WBCs % 94.6 Fluid Neutrophils 7 Fluid Lymphocytes 85 Fluid Monocytes 8 Fl Pathologist Comment May follow Fluid Glucose Fluid Total Protein Fluid LDH Fluid Comment 2 SEE COMMENT Miscellaneous Cytology Pending POC Glucose 11/14/17 11/13/17 11/13/17 06:42 21:20 16:42 POC Glucose 106 151 H 100 11/13/17 12:05 POC Glucose 100 Clinical Impression(s) from Imaging Studies Brain CT 11/12/17 12:18 IMPRESSION: Chronic involutional changes of the brain. 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 Electronically Signed: Eren Sexton MD at 12:56 EDT Tel [phone], Service support , Chest X-Ray 11/12/17 12:18 IMPRESSION: Bilateral pleural effusions right greater than left. Findings suggestive by 4.5 cm x 4.6 cm mass in the right infrahilar region. Electronically Signed: Eren Sexton MD at 13:13 EDT Tel [phone], Service support , Chest CT 11/12/17 18:48 IMPRESSION: 1. Right perihilar mass measuring approximately 6.5 x 3.2 x 6.2 cm. There are air bronchograms in the medial aspect of this mass, suggesting that this mass at least partially represents atelectasis. 2. Mild pleural thickening and atelectatic changes of the left base. 3. Coronary arterial calcifications are present. 4. The bones are osteopenic. There is diffuse endplate spondylosis of the visualized thoracolumbar spine. 5. If clinically indicated, CT thorax with contrast may be helpful for further evaluation. Electronically Signed: Dennis Greenberg MD at 20:37 EDT , Service support , Thoracentesis Ultrasound 11/13/17 07:59 IMPRESSION: Ultrasound-guided right thoracentesis. Electronically Signed: Eren Sexton MD at 12:38 EDT Tel [phone], Service support , Brain MRI 11/13/17 08:23 IMPRESSION: Chronic ischemic changes within the bilateral temporal and right parietal lobes as well as the occipital lobes. There are also findings consistent with chronic bilateral frontal lobe infarcts or other nonspecific brain injury in association with hemosiderin. Chronic ischemic changes within the bina No evidence for acute infarct. No evidence for brain metastasis. Cannot exclude evolving normal pressure hydrocephalus. Electronically Signed: Gunnar Razo MD at 20:30 EDT , Service support , Chest X-Ray 11/13/17 11:26 IMPRESSION: Status post right thoracentesis. There is no evidence of pneumothorax. Electronically Signed: Eren Sexton MD at 13:11 EDT Tel [phone], Service support , Medical Necessity - Tobacco Use Smoking Status: Former smoker Tobacco Use: Pipe Assessment/Plan All Active Problems (This Medical Record has been edited. Action required.) Change in mental status (Acute) RECOMMENDATIONS: 1. Await results of pleural fluid cytology, prior to formulating plan for additional diagnostic workup. 2. Given that the cytology results will likely take several days to result, the patient could be discharged home from my perspective with outpatient follow-up. 3. Encourage incentive spirometer use and mobilize patient as tolerated. IMPRESSIONS: 1. Right-sided perihilar lung mass with associated lymphocyte predominant exudative pleural effusion The patient's perihilar right-sided lung mass is certainly concerning for potential malignancy. Given that is associated with a moderate sized pleural effusion, the patient underwent a diagnostic ultrasound-guided thoracentesis, which revealed evidence of a lymphocyte predominant exudative pleural effusion. Cultures and cytology are currently pending. Malignant pleural effusions will be lymphocyte predominant in over half of the cases. If pleural fluid cytology is negative, would need to then consider bronchoscopic evaluation to facilitate hilar mass tissue sampling. Cytology results will likely take several days to come back. The patient's mass can be further worked up on an outpatient basis. 2. Altered mentation Unclear baseline mentation. This will need to be clarified with family members. MR brain revealed no evidence of potential metastatic disease. However, there was evidence of previous ischemic infarctions and potential evolving normal pressure hydrocephalus. Additional workup per the discretion of hospitalist. 3. Acute versus chronic kidney disease The patient appears to have a baseline component of chronic kidney disease. His creatinine was elevated at presentation to the hospital but has improved with gentle IV fluid hydration. 4. Personal history of traumatic brain injury/hypertension/hyperlipidemia/diabetes mellitus Complicates care, management, recovery and prognosis. Likely okay to continue home medications as indicated. Recommend physical therapy evaluation. This note was generated with [employer].ation software. It may contain incorrect words, spelling, and punctuation that were not noted in checking the note before signing. Code Visit Inpatient E&M: 48788 Subs Hosp L2
--- NOTE | 2017-11-14 07:31 | PN_ITS ---
Patient Problems: Active and Suspected Problems (This Medical Record has been edited. Action required.) Change in mental status (Acute) Subjective: The patient was seen and examined at the bedside this morning. Events from the last 24 hours have been reviewed. The patient is currently afebrile, hemodynamically stable and maintaining appropriate oxygen saturations on room air. The patient did undergo successful ultrasound-guided thoracentesis yesterday with 220 mL's of dark caryn fluid removed from the patient's right hemithorax. No issues were noted overnight. Patient does not appear significantly different from a mentation perspective from yesterday. Objective: The patient's most recent lab work, culture data and imaging studies have all been personally reviewed. MR brain revealed chronic ischemic changes within the bilateral temporal and right parietal lobes, as well as the occipital lobes. Chronic ischemic changes within the bina was noted. There is no evidence for an acute infarction or brain metastasis. There was additional note of potential evolving normal pressure hydrocephalus. Pleural fluid cell count revealed a lymphocyte predominant exudate, which was fulfilled Light's criteria due to an elevated pleural fluid LDH. Pleural fluid Gram stain revealed no organisms. - Physical Exam General: No apparent distress, Confused, Disoriented, - - Difficult to arouse from sleep. Limited interaction. HEENT: Atraumatic, Normocephalic Oral: Dry Mucosa Neck: Supple, No Nodes, No Nuchal Rigidity Lungs: No rhonchi, No wheeze, No rales, Diminished, - - Poor, patient dependent inspiratory effort. Cardiovascular: Regular rate, Regular Rhythm, Normal S1, Normal S2 Abdomen: Bowel Sounds Present, Soft, Non Tender Extremities: No clubbing, No cyanosis, No edema Skin: - - No significant change from previous. Musculoskeletal: No Tenderness to Palpation of Joints or Extremities Lymphatic: No Cervical, Supraclavicular, or Inguinal Adenopathy Neurological: - - No focal neurological deficits. Psych/Mental Status: Flat Affect Vital Signs Temp Pulse Resp BP Pulse Ox 98.2 F 90 16 165/82 H 94 11/14/17 05:55 11/14/17 07:01 11/14/17 05:55 11/14/17 05:55 11/14/17 05:55 Oxygen Flow Rate (L/min) 2 Oxygen Delivery Method Room Air Weight: 201 lb 4.513 oz Body Mass Index (BMI) 31.5 Intake and Output for Last 24 Hours 11/12/17 11/13/17 11/14/17 23:59 23:59 23:59 Intake Total 2100 368 / 368 Balance 2100 368 / 368 Microbiology Past 72 Hours 11/13/17 11:15 Gram Stain - Final Fluid - Thoracentesis Fluid Laboratory Tests Past 24 Hrs 11/13/17 11/13/17 11/13/17 05:40 05:40 11:15 PT Cancelled INR Cancelled APTT 33.5 Lactate Dehydrogenase 179 Total Protein 6.4 Globulin 3.8 Albumin/Globulin Ratio 0.7 L Fluid Source Fluid Color Fluid Appearance Fluid WBC Fluid RBC Fluid Tot Cell Count Fld Polynuclear WBCs # Fld Polynuclear WBCs % Fluid Mononuclear WBCs Fld Mononuclear WBCs % Fluid Neutrophils Fluid Lymphocytes Fluid Monocytes Fl Pathologist Comment Fluid Glucose 82 H Fluid Total Protein 2.8 Fluid LDH 282 Fluid Comment 2 Miscellaneous Cytology 11/13/17 11/13/17 11:15 11:15 PT INR APTT Lactate Dehydrogenase Total Protein Globulin Albumin/Globulin Ratio Fluid Source THORACENTESIS Fluid Color YELLOW Fluid Appearance SL CLDY Fluid WBC 0.257 Fluid RBC 934 Fluid Tot Cell Count 0.258 Fld Polynuclear WBCs # 0.014 Fld Polynuclear WBCs % 5.4 Fluid Mononuclear WBCs 0.243 Fld Mononuclear WBCs % 94.6 Fluid Neutrophils 7 Fluid Lymphocytes 85 Fluid Monocytes 8 Fl Pathologist Comment May follow Fluid Glucose Fluid Total Protein Fluid LDH Fluid Comment 2 SEE COMMENT Miscellaneous Cytology Pending POC Glucose 11/14/17 11/13/17 11/13/17 06:42 21:20 16:42 POC Glucose 106 151 H 100 11/13/17 12:05 POC Glucose 100 Clinical Impression(s) from Imaging Studies Brain CT 11/12/17 12:18 IMPRESSION: Chronic involutional changes of the brain. 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 Electronically Signed: Eren Sexton MD at 12:56 EDT Tel [phone], Service support , Chest X-Ray 11/12/17 12:18 IMPRESSION: Bilateral pleural effusions right greater than left. Findings suggestive by 4.5 cm x 4.6 cm mass in the right infrahilar region. Electronically Signed: Eren Sexton MD at 13:13 EDT Tel [phone], Service support , Chest CT 11/12/17 18:48 IMPRESSION: 1. Right perihilar mass measuring approximately 6.5 x 3.2 x 6.2 cm. There are air bronchograms in the medial aspect of this mass, suggesting that this mass at least partially represents atelectasis. 2. Mild pleural thickening and atelectatic changes of the left base. 3. Coronary arterial calcifications are present. 4. The bones are osteopenic. There is diffuse endplate spondylosis of the visualized thoracolumbar spine. 5. If clinically indicated, CT thorax with contrast may be helpful for further evaluation. Electronically Signed: Dennis Greenberg MD at 20:37 EDT , Service support , Thoracentesis Ultrasound 11/13/17 07:59 IMPRESSION: Ultrasound-guided right thoracentesis. Electronically Signed: Eren Sexton MD at 12:38 EDT Tel [phone], Service support , Brain MRI 11/13/17 08:23 IMPRESSION: Chronic ischemic changes within the bilateral temporal and right parietal lobes as well as the occipital lobes. There are also findings consistent with chronic bilateral frontal lobe infarcts or other nonspecific brain injury in association with hemosiderin. Chronic ischemic changes within the bina No evidence for acute infarct. No evidence for brain metastasis. Cannot exclude evolving normal pressure hydrocephalus. Electronically Signed: Gunnar Razo MD at 20:30 EDT , Service support , Chest X-Ray 11/13/17 11:26 IMPRESSION: Status post right thoracentesis. There is no evidence of pneumothorax. Electronically Signed: Eren Sexton MD at 13:11 EDT Tel [phone], Service support , Medical Necessity - Tobacco Use Smoking Status: Former smoker Tobacco Use: Pipe Assessment/Plan All Active Problems (This Medical Record has been edited. Action required.) Change in mental status (Acute) RECOMMENDATIONS: 1. Await results of pleural fluid cytology, prior to formulating plan for additional diagnostic workup. 2. Given that the cytology results will likely take several days to result, the patient could be discharged home from my perspective with outpatient follow- up. 3. Encourage incentive spirometer use and mobilize patient as tolerated. IMPRESSIONS: 1. Right-sided perihilar lung mass with associated lymphocyte predominant exudative pleural effusion The patient's perihilar right-sided lung mass is certainly concerning for potential malignancy. Given that is associated with a moderate sized pleural effusion, the patient underwent a diagnostic ultrasound-guided thoracentesis, which revealed evidence of a lymphocyte predominant exudative pleural effusion. Cultures and cytology are currently pending. Malignant pleural effusions will be lymphocyte predominant in over half of the cases. If pleural fluid cytology is negative, would need to then consider bronchoscopic evaluation to facilitate hilar mass tissue sampling. Cytology results will likely take several days to come back. The patient's mass can be further worked up on an outpatient basis. 2. Altered mentation Unclear baseline mentation. This will need to be clarified with family members. MR brain revealed no evidence of potential metastatic disease. However, there was evidence of previous ischemic infarctions and potential evolving normal pressure hydrocephalus. Additional workup per the discretion of hospitalist. 3. Acute versus chronic kidney disease The patient appears to have a baseline component of chronic kidney disease. His creatinine was elevated at presentation to the hospital but has improved with gentle IV fluid hydration. 4. Personal history of traumatic brain injury/hypertension/hyperlipidemia/ diabetes mellitus Complicates care, management, recovery and prognosis. Likely okay to continue home medications as indicated. Recommend physical therapy evaluation. This note was generated with [employer] software. It may contain incorrect words, spelling, and punctuation that were not noted in checking the note before signing. Code Visit Inpatient E&M: 45412 Subs Hosp L2
[2017-11-14] MEDS: Sertraline 100 MG Tablet PO (08:33)
[2017-11-14 11:20] LABS: Bedside Glucose 143 mg/dL (70-110)
[2017-11-14 13:53] LABS: Pathologist Comment/Body Fluid Reviewed
--- NOTE | 2017-11-14 14:41 | CASEMGMT ---
Addendum entered by Monica Cruz 11/14/17 16:30: Per physician pt is ready for d/c today. Physician spoke to son and informed him of this. Green sheet placed on chart for nursing to follow for d/c arrangements. Phone call to [facility] and notified of return today. LETHA Mitchell Original Note: Social Work Pt is a current resident at [facility]. Spoke with Viri at [facility] and updated clinicals faxed. [facility] plans to take pt back at time of d/c. Phone call to pt son Linden who is also planning for return to [facility] upon d/c. Physician informed and d/c likely tomorrow. SW will continue to follow. Plan: [facility] LETHA Mitchell
--- NOTE | 2017-11-14 16:53 | PCM.DC ---
- Discharge Diagnoses Current Active Problems: Current Active and Chronic Problems (This Medical Record has been edited. Action required.) Change in mental status (Acute) You will use the following diet at home:: Calorie/Carbohydrate Controlled (specify 1200, 1400, etc) - 1800 tonya diet Your food should be the consistency of: Regular Your liquids should be the consistency of: Regular/Thin Discharge Activity: Return to Normal Activity Additional Instructions: perform blood sugars [facility]-call Dr. El if blood sugar over 175 Allergies/Adverse Reactions: Allergies No Known Allergies Allergy (Verified 05/30/15 00:18) Medications to take at Discharge Atorvastatin Calcium [Lipitor] 20 mg PO QHS 06/25/13 Acetaminophen 1,000 mg PO Q6H PRN 04/30/17 Guaifenesin/Dextromethorphan [Robafen Dm [facility]-Chest Rizwan Syrp] 20 ml PO Q4H PRN PRN 04/30/17 Ibuprofen 400 mg PO Q6H PRN PRN 04/30/17 Sertraline HCl [Zoloft] 100 mg PO DAILY 04/30/17 traMADol [Ultram] 50 mg PO PRN PRN 04/30/17 Acetaminophen [Tylenol] 650 mg PO BID 11/12/17 Lisinopril [Zestril] 10 mg PO DAILY #30 tab 11/14/17 Loperamide [Imodium] 4 mg PO PRN PRN #20 cap 11/14/17 The following prescriptions were given: Lisinopril [Zestril] 10 mg PO DAILY #30 tab Loperamide [Imodium] 4 mg PO PRN PRN #20 cap PRN Reason: Diarrhea Primary Care Physician: Dm El MD [Primary Care Provider] - Please follow up with your Primary Care Physician in: in 1-2 weeks Test Results: Test results from this visit will be discussed in further detail at your follow-up appointment, if applicable. Please Follow Up With: Van Abbasi DO When: for IBUS, call his office to set it up
--- NOTE | 2017-11-14 16:56 | DCINST_ITS ---
- Discharge Diagnoses Current Active Problems: Current Active and Chronic Problems (This Medical Record has been edited. Action required.) Change in mental status (Acute) You will use the following diet at home:: Calorie/Carbohydrate Controlled ( specify 1200, 1400, etc) - 1800 tonya diet Your food should be the consistency of: Regular Your liquids should be the consistency of: Regular/Thin Discharge Activity: Return to Normal Activity Additional Instructions: perform blood sugars [facility]-call Dr. El if blood sugar over 175 Allergies/Adverse Reactions: Allergies No Known Allergies Allergy (Verified 05/30/15 00:18) Medications to take at Discharge Atorvastatin Calcium [Lipitor] 20 mg PO QHS 06/25/13 Acetaminophen 1,000 mg PO Q6H PRN 04/30/17 Guaifenesin/Dextromethorphan [Robafen Dm Cgh-Chest Riwzan Syrp] 20 ml PO Q4H PRN PRN 04/30/17 Ibuprofen 400 mg PO Q6H PRN PRN 04/30/17 Sertraline HCl [Zoloft] 100 mg PO DAILY 04/30/17 traMADol [Ultram] 50 mg PO PRN PRN 04/30/17 Acetaminophen [Tylenol] 650 mg PO BID 11/12/17 Lisinopril [Zestril] 10 mg PO DAILY #30 tab 11/14/17 Loperamide [Imodium] 4 mg PO PRN PRN #20 cap 11/14/17 The following prescriptions were given: Lisinopril [Zestril] 10 mg PO DAILY #30 tab Loperamide [Imodium] 4 mg PO PRN PRN #20 cap PRN Reason: Diarrhea Primary Care Physician: Dm El MD [Primary Care Provider] - Please follow up with your Primary Care Physician in: in 1-2 weeks Test Results: Test results from this visit will be discussed in further detail at your follow- up appointment, if applicable. Please Follow Up With: Van Abbasi DO When: for IBUS, call his office to set it up
--- NOTE | 2017-11-14 17:26 | NURSING ---
report called to Sanjana WILLIAMSON at [facility]
--- NOTE | 2017-11-14 17:30 | PCA ---
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
--- NOTE | 2017-11-16 16:23 | DS.PCM_ITS ---
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 Action required.) History of traumatic brain injury (Chronic) Hyperlipidemia (Chronic) Obesity (BMI 30.0-34.9) (Chronic) Anxiety and depression (Chronic) Diabetes mellitus, type II (Chronic) Hospital Course and Treatment Operations: None Procedures: Thoracentesis Summary of Care Provided: The patient is a 82 year old M in the emergency room at [facility] after being sent in from an assisted living facility due to mental status change. The facility stated that the patient was not acting his normal self and was not interacting with AIDS like usually did. Workup in the emergency room included labs which showed a normal white blood cell count, BUN was slightly elevated at 20, creatinine was 1.65, urinalysis was unremarkable, blood glucose was 164. Chest x-ray was obtained which indicated a possible right lung mass, CT of the brain showed chronic involutional changes and stable areas of [place] involving the frontal lobe as well as the left medial occipital lobe and the right anterior temporal lobe as result of previous head trauma. Patient was admitted to PCU for mental status change and right lung mass, patient underwent a CT of the chest which confirmed a large right lung mass along with pleural effusion, he was seen in consultation by pulmonary medicine, a right thoracentesis was carried out, it did not reveal malignant cells however. It was felt the best course for the patient if this was to be investigated would be to have an outpatient IBUS procedure. Patient's brain MRI did not show evidence of metastatic disease but showed old strokes and brain damage from his previous head trauma. Patient's mental status was felt to be at baseline. Conversations were carried out with the patient's son who stated that he was not sure he wanted lung cancer treated if it was a lung cancer but he wanted to know the diagnosis to make the decision. On 11/14/17, patient was seen and examined felt in stable condition to return to assisted living. Discharge Activity: Return to Normal Activity Home Medications: Medications to take at Discharge Atorvastatin Calcium [Lipitor] 20 mg PO QHS 06/25/13 Acetaminophen 1,000 mg PO Q6H PRN 04/30/17 Guaifenesin/Dextromethorphan [Robafen Dm Cgh-Chest Rizwan Syrp] 20 ml PO Q4H PRN PRN 04/30/17 Ibuprofen 400 mg PO Q6H PRN PRN 04/30/17 Sertraline HCl [Zoloft] 100 mg PO DAILY 04/30/17 traMADol [Ultram] 50 mg PO PRN PRN 04/30/17 Acetaminophen [Tylenol] 650 mg PO BID 11/12/17 Lisinopril [Zestril] 10 mg PO DAILY #30 tab 11/14/17 Loperamide [Imodium] 4 mg PO PRN PRN #20 cap 11/14/17 Following Prescrptions Were Given to Patient: Lisinopril [Zestril] 10 mg PO DAILY #30 tab Loperamide [Imodium] 4 mg PO PRN PRN #20 cap PRN Reason: Diarrhea Primary Care Physician: Dm El MD [Primary Care Provider] - Please follow up with your Primary Care Physician in: in 1-2 weeks Please Follow Up With: Van Abbasi, DO When: for IBUS, call his office to set it up Disposition: Asstd Living/Non-Skill [facility] Minutes spent on discharge:: 35 Patient Condition:: Stable Medical Necessity - Tobacco Use Smoking Status: Former smoker Tobacco Use: Pipe Meaningful Use Info Meaningful Use Diagnoses (Choose all that apply): None applicable Code Visit Inpatient E&M: 08963 Disch Hosp
== END 2017-11-14 17:58 | disposition home or self-care (01) | DRG 884 ==
LOC: ED 13:08 → PCU 15:06
PROVIDERS: Internal Medicine Critical Care Medicine; Admitting Provider Internal Medicine; Emergency Provider Emergency Medicine; Family Provider Family Medicine; PCP Family Medicine; Visit Provider Internal Medicine
DX: F01.50 Vascular dementia, unspecified severity, without behavioral disturbance, psychotic disturbance, mood disturbance, and anxiety (principal); J90 Pleural effusion, not elsewhere classified; R41.82 Altered mental status, unspecified; I10 Essential (primary) hypertension; E11.9 Type 2 diabetes mellitus without complications; E78.5 Hyperlipidemia, unspecified; F41.9 Anxiety disorder, unspecified; F32.9 Major depressive disorder, single episode, unspecified; E66.9 Obesity, unspecified; Z71.3 Dietary counseling and surveillance; Z68.31 Body mass index [BMI] 31.0-31.9, adult; Z87.891 Personal history of nicotine dependence; R91.8 Other nonspecific abnormal finding of lung field; I69.818 Other symptoms and signs involving cognitive functions following other cerebrovascular disease; Z87.820 Personal history of traumatic brain injury
CPT/HCPCS: 32555; 36415; 70450; 70553; 71045; 71046; 71250; 80048; 81001; 82945; 82962; 83615; 84156; 84157; 84484; 85025; 85610; 85730; 87070; 87075; 87205; 87493; 88108; 88305; 88313; 89050; 93005; 99285; A9585; J7030; A4216

== ENCOUNTER → 2017-12-31 05:00 | Outpatient (REF) | payer MEDICARE, OTHER, SELFPAY ==
[2017-12-31 09:39] LABS: Hematocrit 43.7 % (40-54); Hemoglobin 13.9 g/dl (13.0-16.5); Mean Corp Hgb Conc 31.8 g/gl (32-36); Mean Corpuscular Hgb 27.9 pg (27.0-32.0); Mean Corpuscular Volume 87.6 fL (80-94); Mean Platelet Vol. 10.4 fl (6.2-12.0); Platelet Count 390 K/mm3 (150-450); RBC Distribution Width CV 16.7 % (11.6-14.6); RBC Distribution Width SD 53.3 fl (35.1-43.9); Red Blood Count 4.99 M/mm3 (4.6-6.2); White Blood Count 12.4 K/mm3 (4.4-11.0)
[2017-12-31 09:41] LABS: Scan Indicated on CBC? Y/N NO
[2017-12-31 09:55] LABS: Prothrombin Time (Protime)PT. 13.2 SECONDS (11.7-14.9)
== END ==
DX: R91.8 Other nonspecific abnormal finding of lung field (principal); Z79.899 Other long term (current) drug therapy
CPT/HCPCS: 36415; 85027; 85610

== ENCOUNTER → 2018-01-14 05:00 | Outpatient (REF) | payer MEDICARE, OTHER, SELFPAY ==
[2018-01-14 09:02] LABS: Hematocrit 39.5 % (40-54); Hemoglobin 12.3 g/dl (13.0-16.5); Mean Corp Hgb Conc 31.1 g/gl (32-36); Mean Corpuscular Hgb 27.3 pg (27.0-32.0); Mean Corpuscular Volume 87.8 fL (80-94); Mean Platelet Vol. 9.8 fl (6.2-12.0); Platelet Count 281 K/mm3 (150-450); RBC Distribution Width CV 16.3 % (11.6-14.6); RBC Distribution Width SD 52.4 fl (35.1-43.9); White Blood Count 10.3 K/mm3 (4.4-11.0)
[2018-01-14 09:03] LABS: Scan Indicated on CBC? Y/N NO
[2018-01-14 09:21] LABS: Anion Gap 7 (5-15); BUN 21 mg/dL (7-18); BUN/Creat Ratio 16.2 RATIO (10-20); Calcium,Total 8.9 mg/dL (8.5-10.1); Chloride 105 mmol/L (98-107); EST Glomerular Filtration Rate 56 mL/min (>60); Est Glom Filt Rate - Afr Amer 68 mL/min (>60); Glucose 143 mg/dL (74-106); Potassium 5.5 mmol/L (3.5-5.1); Sodium Level 140 mmol/L (136-145)
[2018-01-14 09:33] LABS: Hemoglobin A1c 7.5 % (4.2-6.3)
== END ==
PROVIDERS: Visit Provider Family Medicine
DX: Z01.818 Encounter for other preprocedural examination (principal); Z79.899 Other long term (current) drug therapy; R53.83 Other fatigue
CPT/HCPCS: 36415; 80048; 83036; 85027

== ENCOUNTER → 2018-01-16 17:47 | Outpatient (CLI) | payer MEDICARE, OTHER, SELFPAY ==
--- NOTE | 2018-01-16 17:49 | CT_ITS ---
STUDY: CT CHEST WITH CONTRAST REASON FOR EXAM: Male, 82 years old. Pneumonia RADIATION DOSAGE (If Supplied By Facility): CTDIvol = ( 15.99 ) mGy, DLP = ( 641.38 ) mGycm TECHNIQUE: Transaxial imaging was performed following intravenous administration of 100ML ml of Isovue 300 contrast material. Individualized dose optimization techniques were used for this CT. COMPARISON: 11/12/2017 FINDINGS: Masslike with moderate size right pleural effusion. Density in the right lower lobe measuring 6.4 x 3.1 cm. Moderate right pleural effusion. Trace left pleural effusion with left basilar atelectasis. No pneumothorax. Normal heart and pericardium. Normal mediastinum. Normal hilar regions. Normal enhanced pulmonary arteries. No pulmonary embolism. Thoracic aorta demonstrates no aneurysmal dilatation or dissection. There are multi-level degenerative changes of the thoracic spine. There is no demonstrated abnormality of the visualized upper abdomen. CT/Chest WITH Contrast IMPRESSION: 1. 6.4 cm masslike density in the right lower lobe, unchanged from prior imaging. 2. Moderate size right pleural effusion and trace left pleural effusion. Electronically Signed: Eze Sloan MD at 4:48 EDT Tel , Service support ,
== END ==
PROVIDERS: Family Provider Family Medicine; PCP Family Medicine; Referring Provider Nurse Practitioner Acute Care; Visit Provider Nurse Practitioner Acute Care
DX: R91.8 Other nonspecific abnormal finding of lung field (principal)
CPT/HCPCS: 71260; Q9967

== ENCOUNTER → 2018-01-18 07:24 | Outpatient (REF) | payer MEDICARE, OTHER, SELFPAY ==
[2018-01-18 09:00] LABS: Prothrombin Time (Protime)PT. 13.2 SECONDS (11.7-14.9)
[2018-01-18 09:01] LABS: Partial Thromboplast Time 34.8 Seconds (24.1-36.2)
== END ==
PROVIDERS: Visit Provider Family Medicine
DX: Z01.818 Encounter for other preprocedural examination (principal); R53.83 Other fatigue; Z79.899 Other long term (current) drug therapy
CPT/HCPCS: 36415; 85610; 85730

== ENCOUNTER → 2018-01-21 04:00 | Outpatient (REF) | payer MEDICARE, OTHER, SELFPAY ==
[2018-01-21 09:12] LABS: LDH 183 U/L (87-241)
[2018-01-21 12:58] LABS: ALB/GLOB Ratio 0.5 RATIO (0.9-2.4); Globulin 4.1 g/dL (2.2-4.2); Protein, Total 6.3 g/dL (6.4-8.2)
== END ==
PROVIDERS: Visit Provider Family Medicine
DX: Z01.818 Encounter for other preprocedural examination (principal)
CPT/HCPCS: 36415; 83615; 84156

== ENCOUNTER → 2018-01-21 14:03 | Outpatient (CLI) | payer MEDICARE, OTHER, SELFPAY ==
--- NOTE | 2018-01-21 14:41 | US_ITS ---
STUDY: SUPERFICIAL ULTRASOUND - RIGHT POSTERIOR CHEST REASON FOR EXAM: Male, 82 years old. Right pleural effusion and right hilar lung mass. TECHNIQUE: A superficial ultrasound was performed with real-time and static sanchez-scale imaging. COMPARISON: 11/13/2017. FINDINGS: Unfortunately, only a small hypoechoic fluid collection is seen in the right posterior chest image measuring up to 5.4 cm AP by 10.4 cm transverse. Due to risk of pneumothorax, ultrasound-guided thoracentesis was canceled today. US/Chest IMPRESSION: Small fluid collection within the right posterior pleural cavity as described, ultrasound guided thoracentesis was canceled due to risk of pneumothorax. Patient may return with larger pleural effusion for ultrasound guided thoracentesis if clinically indicated. Please note Pathology report from ultrasound-guided thoracentesis 11/13/2017. Electronically Signed: Jamel Collins, at 17:16 EDT Tel , Service support ,
== END ==
PROVIDERS: Family Provider Family Medicine; PCP Family Medicine; Referring Provider Nurse Practitioner Acute Care; Visit Provider Nurse Practitioner Acute Care
DX: Z01.818 Encounter for other preprocedural examination (principal); R91.8 Other nonspecific abnormal finding of lung field
CPT/HCPCS: 36415; 76604; 83615; 84156